=== PATIENT | male | born 1945 | race Caucasian/White ===

== ENCOUNTER 2022-12-18 19:00 | Outpatient (CLI) | payer OTHER, SELFPAY ==
[2022-12-18 22:16] LABS: Erythrocyte SedimentationRate* 23 mm/hr (2-15)
== END 2022-12-18 19:01 | disposition home or self-care (01) ==
PROVIDERS: PCP Surgery; Visit Provider Nurse Practitioner Family
DX: R60.0 Localized edema (principal)
CPT/HCPCS: 85651

== ENCOUNTER 2023-07-27 15:30 | Outpatient (RCR) | payer OTHER, SELFPAY | END 2023-08-06 08:51 | disposition home or self-care (01) | PROVIDERS: PCP Surgery; Visit Provider Podiatrist | DX: S86.012D Strain of left Achilles tendon, subsequent encounter (principal); Z51.89 Encounter for other specified aftercare; M76.62 Achilles tendinitis, left leg; M25.572 Pain in left ankle and joints of left foot | CPT/HCPCS: 97110; 97140; 97161 ==

== ENCOUNTER 2024-07-17 16:15 | Outpatient (RCR) | payer OTHER, SELFPAY | END 2024-10-27 09:23 | disposition home or self-care (01) | PROVIDERS: PCP Surgery; Visit Provider Family Medicine | DX: M54.41 Lumbago with sciatica, right side (principal); M54.16 Radiculopathy, lumbar region; M62.81 Muscle weakness (generalized); Z74.09 Other reduced mobility; Z51.89 Encounter for other specified aftercare | CPT/HCPCS: 97110; 97140; 97161 ==

== ENCOUNTER 2025-03-28 09:09 | Outpatient (CLI) | payer OTHER, SELFPAY | END 2025-03-28 09:10 | disposition home or self-care (01) | LOC: WOUND 09:12 | PROVIDERS: PCP Family Medicine; Visit Provider Nurse Practitioner Family | DX: I87.2 Venous insufficiency (chronic) (peripheral) (principal); L97.818 Non-pressure chronic ulcer of other part of right lower leg with other specified severity; I48.19 Other persistent atrial fibrillation; Z79.01 Long term (current) use of anticoagulants | CPT/HCPCS: 97597; G0463 ==

== ENCOUNTER 2025-04-04 09:18 | Outpatient (CLI) | payer OTHER, SELFPAY | END 2025-04-04 09:19 | disposition home or self-care (01) | LOC: WOUND 09:18 | PROVIDERS: PCP Family Medicine; Visit Provider Nurse Practitioner Family | DX: I87.2 Venous insufficiency (chronic) (peripheral) (principal); L97.818 Non-pressure chronic ulcer of other part of right lower leg with other specified severity; I48.19 Other persistent atrial fibrillation | CPT/HCPCS: 11042 ==

== ENCOUNTER 2025-04-11 09:26 | Outpatient (CLI) | payer OTHER, SELFPAY | END 2025-04-11 09:27 | disposition home or self-care (01) | LOC: WOUND 09:26 | PROVIDERS: PCP Family Medicine; Visit Provider Nurse Practitioner Family | DX: I87.2 Venous insufficiency (chronic) (peripheral) (principal); L97.812 Non-pressure chronic ulcer of other part of right lower leg with fat layer exposed; I48.19 Other persistent atrial fibrillation | CPT/HCPCS: 11042 ==

== ENCOUNTER 2025-04-18 09:30 | Outpatient (CLI) | payer OTHER, SELFPAY | END 2025-04-18 09:31 | disposition home or self-care (01) | LOC: WOUND 09:30 | PROVIDERS: PCP Family Medicine; Visit Provider Nurse Practitioner Family | DX: I87.2 Venous insufficiency (chronic) (peripheral) (principal); L97.812 Non-pressure chronic ulcer of other part of right lower leg with fat layer exposed; I48.91 Unspecified atrial fibrillation; Z79.01 Long term (current) use of anticoagulants | CPT/HCPCS: 11042 ==

== ENCOUNTER 2025-04-25 11:22 | Outpatient (CLI) | payer OTHER, SELFPAY | END 2025-04-25 11:23 | disposition home or self-care (01) | LOC: WOUND 11:22 | PROVIDERS: PCP Family Medicine; Visit Provider Nurse Practitioner Family | DX: I87.2 Venous insufficiency (chronic) (peripheral) (principal); L97.812 Non-pressure chronic ulcer of other part of right lower leg with fat layer exposed; I48.19 Other persistent atrial fibrillation | CPT/HCPCS: 11042 ==

== ENCOUNTER 2025-05-02 11:13 | Outpatient (CLI) | payer OTHER, SELFPAY | END 2025-05-02 11:14 | disposition home or self-care (01) | LOC: WOUND 11:13 | PROVIDERS: PCP Family Medicine; Visit Provider Family Medicine | DX: I87.2 Venous insufficiency (chronic) (peripheral) (principal); L97.812 Non-pressure chronic ulcer of other part of right lower leg with fat layer exposed; I48.19 Other persistent atrial fibrillation | CPT/HCPCS: 11042 ==

== ENCOUNTER 2025-05-09 11:26 | Outpatient (CLI) | payer OTHER, SELFPAY | END 2025-05-09 11:27 | disposition home or self-care (01) | LOC: WOUND 11:26 | PROVIDERS: PCP Family Medicine; Visit Provider Physician Assistant | DX: I87.2 Venous insufficiency (chronic) (peripheral) (principal); L97.812 Non-pressure chronic ulcer of other part of right lower leg with fat layer exposed; I48.19 Other persistent atrial fibrillation | CPT/HCPCS: 97597 ==

== ENCOUNTER 2025-05-16 11:21 | Outpatient (CLI) | payer OTHER, SELFPAY | END 2025-05-16 11:22 | disposition home or self-care (01) | LOC: WOUND 11:21 | PROVIDERS: PCP Family Medicine; Visit Provider Nurse Practitioner Family | DX: I87.2 Venous insufficiency (chronic) (peripheral) (principal); L97.818 Non-pressure chronic ulcer of other part of right lower leg with other specified severity; I48.19 Other persistent atrial fibrillation | CPT/HCPCS: G0463 ==

== ENCOUNTER 2025-08-02 05:12 | Emergency (ER) | payer OTHER, SELFPAY ==
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
--- OUTSIDE RECORDS SUMMARY | 2025-08-02 05:14 | XMS_ITS ---
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 Phone ^\\, ^\\ Unavailable Unavailable Brook Cottrell Unavailable Unavailable Jameson Stallings Unavailable Unavailable Allergies and adverse reactions Code CodeSystem Substance Reaction Severity StartDate Concern Status Venoms Unknown 11/29/2019 active Hymenoptera Unknown 11/29/2019 active GRASS POLLEN Unknown 11/29/2019 active Adhesive Tape Unknown 11/29/2019 active Care Team Name Role Address Phone Organization Dates Jameson Stallings [address], [address], [place] (Office): [facility] 11/29/2019 - 12/11/2019 ^\\ ^\\ [place] [facility] 11/29/2019 - 12/11/2019 Brook Cottrell [address] [place] [address] , [place], [address], [place] (Office): : (Pager): [facility] 11/29/2019 - 12/11/2019 Immunizations Immunization Status Vaccine Details Vaccine Code CodeSystem Date Notes Influenza completed Influenza, high-dose, split virus, quadrivalent, injectable, preservative free 197 CVX created date: 11/30/2019 administere d date: 09/22/2019 Pneumovax Dose 1 completed pneumococcal polysaccharide vaccine, 23 valent 33 CVX created date: 11/30/2019 administere d date: 08/19/2012 TB 2 Step Mantoux Skin Test completed tuberculin skin test; unspecified formulation lotNumber: [id number] expiry: 01/30/2022 Mfg: trippiece Given 0.1 ml Left Forearm intradermally Step 1 of Multi-step with next step required 98 CVX created date: 11/30/2019 consent date: 11/30/2019 administere d date: 11/30/2019 TDap completed diphtheria, teta nus toxoids and acellular pertussis vaccine 20 CVX created date: 11/30/2019 administere d date: 08/22/2012 Prevnar 13 completed pneumococcal conjugate vaccine, 13 valent 133 CVX created date: 11/30/2019 administere d date: 11/29/2014 Mental Status Section Date Assessment Total Score Description 12/11/2019 CAM 0 No delirium ind icated 12/03/2019 BIMS 15 cognitively int act CAM 0 No delirium ind icated PHQ-9 03 minimal depress ion Problems Problem # Description Date of onset Resolved Date Code CodeSystem Concern Status 1 ACUTE ON CHRONIC RIGHT HEART FAILURE 11/29/[id number] active 2 BENIGN PROSTATIC HYPERPLASIA WITH LOWER URINARY TRACT SYMPTOMS 11/29/[address] active 3 BLINDNESS, ONE EYE, UNSPECIFIED EYE 11/29/[address] active 4 EDEMA, UNSPECIFIED 11/29/[address] active 5 ENCOUNTER FOR SURGICAL AFTERCARE FOLLOWING 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 11/29/[address] active 6 HYPERLIPIDEMIA, UNSPECIFIED 11/29/[address] active 7 INSOMNIA, UNSPECIFIED 11/29/[address] active 8 BODY FITTER (CURRENT) USE OF ANTICOAGULANTS 11/29/[address] active 9 MALE ERECTILE DYSFUNCTION, UNSPECIFIED 11/29/[address] active 10 MICROSCOPIC COLITIS, UNSPECIFIED 11/29/[address] active 11 OTHER INTERVERTEBRAL DISC DISPLACEMENT, LUMBAR REGION 11/29/[address] active 12 OTHER OBSTRUCTIVE AND REFLUX UROPATHY 11/29/[address] active 13 OTHER SPECIFIED POSTPROCEDURAL STATES 11/29/[address] active 14 PERSONAL HISTORY OF TRANSIENT ISCHEMIC ATTACK (TIA), AND CEREBRAL INFARCTION WITHOUT RESIDUAL DEFICITS 11/29/[address] active 15 RASH AND OTHER NONSPECIFIC SKIN ERUPTION 11/29/[address] active 16 RETENTION OF URINE, UNSPECIFIED 11/29/[address] active 17 RHEUMATIC TRICUSPID INSUFFICIENCY 11/29/[address] active 18 UNSPECIFIED ATRIAL FIBRILLATION 11/29/[address] active 19 UNSPECIFIED ATRIAL FLUTTER 11/29/[address] active 20 UNSPECIFIED HEARING LOSS, UNSPECIFIED EAR 11/29/[address] active Reason for Referral No Reasons for Referral Entered Social History Social History Observation Description Start Date End Date Code Code System Current Smoking Status Tobacco smoking consumption unknown 880038190 SNOMED CT Sex Assigned At Male 1945 [address]-4 [facility] Gender Identity Sexual Orientation Vital Signs Code Code System Vitals Name Values and Units Timing Information 9279-1 [facility] Respiratory Rate Value=18.0 Units=/m in 12/11/2019 8462-4 [facility] Blood Pressure-Diastolic Value=65 Un its=mmHg 12/11/2019 8480-6 [facility] Blood Pressure-Systolic Vajng=696 Un its=mmHg 12/11/2019 8310-5 [facility] Body Temperature Value=98.1 Units= F 12/11/2019 8867-4 [facility] Heart rate Value=84.0 Units=/min 01/2020 70163-7 [facility] O2 % BldC Oximetry Value=98.0 Units= % 12/11/2019 31595-0 [facility] Pain Level Value=0.0 12/11/2019 88225-2 [facility] Weight Voiyl=060.4 Units=Lbs 01/2020 8302-2 [facility] Height Value=67.0 Units=Inches 11/29/2019
--- NOTE | 2025-08-02 05:16 | ED.GENADULT ---
HPI - General Adult General Time Seen by Provider: 05:16 Date Seen: 08/02/25 Chief complaint: Epistaxis/Nosebleed Stated complaint: nose bleed/on Eliquis Time Seen by Provider: 08/02/25 05:16 Source: patient and RN notes reviewed Mode of arrival: ambulatory Limitations: no limitations History of Present Illness HPI narrative: 80-year-old male currently anticoagulated for atrial fibrillation with scheduled ablation and pacemaker placement in a couple of weeks who comes in with nose bleed. Patient has had intermittent nosebleeds for the last week but today's been consistently bleeding for last couple hours. Has a nasal clamp that he put on with minimal improvement. Denies trauma. Related Data Home Medications ?Medication ?Instructions ?Recorded ?Confirmed apixaban 5 mg tablet (Eliquis) 5 mg PO 12/18/22 12/18/22 atorvastatin 40 mg tablet 40 mg PO 12/18/22 12/18/22 finasteride 1 mg tablet 1 mg PO QDAY 12/18/22 08/02/25 leflunomide 20 mg tablet 20 mg PO QDAY 12/18/22 08/02/25 methotrexate sodium 2.5 mg tablet 2.5 mg PO 12/18/22 12/18/22 digoxin 125 mcg (0.125 mg) tablet 125 mcg PO DAILY 08/02/25 08/02/25 flecainide 50 mg tablet PO 08/02/25 furosemide .ROUTE 08/02/25 Previous Rx's ?Medication ?Instructions ?Recorded hydrochlorothiazide 25 mg tablet 25 mg PO QAM #30 tabs 12/18/22 amoxicillin 875 mg-potassium 1 tab PO BID #10 tabs 08/02/25 clavulanate 125 mg tablet Allergies Allergy/AdvReac Type Severity Reaction Status Date / Time amiodarone Allergy Mild Verified 08/02/25 05:37 hydroxychloroquine Allergy Mild Swelling/Ra Verified 08/02/25 05:37 sh sotalol Allergy Mild Rash Verified 08/02/25 05:37 adhesive tape Allergy Unknown Verified 08/02/25 05:37 grass pollen Allergy Unknown Verified 08/02/25 05:37 silicone Allergy Unknown Verified 08/02/25 05:37 venom-wasp Allergy Unknown Verified 08/02/25 05:37 yellow jacket venom Allergy Mild Uncoded 12/18/22 18:34 PFSH PFSH Medical History (Updated 08/02/25 @ 06:21 by Derek Muñoz MD) Lower extremity edema ?R60.0 - Localized edema (ICD-10) Social History Smoking Status: Never smoker How often do you have a drink containing alcohol: never AUDIT-C Alcohol total score: 0 Non-prescribed substance use: denies use Exam Narrative: Exam Narrative: General: well nourished , NAD Head: Atraumatic and normocephalic ENT: External ears and external nose are normal Eyes: Conjunctiva clear, pupils are equal reactive, external ocular motions are intact Neck: Full spontaneous range of motion of the neck Lungs: No respiratory distress Musculoskeletal: No tenderness or deformity Neurologic: No gross focal neurologic deficits Skin: No rashes Psych: Mood and affect are appropriate Const: Vital Signs, click to edit/add: Vital Signs - 24 hr 08/02/25 05:27 Temperature 98.0 F Pulse Rate [Right Pulse Oximeter] 120 H Respiratory Rate 18 Blood Pressure [Ri ght Upper Arm] 140/91 H Pulse Oximetry 96 Oxygen Delivery Me thod Room Air Course Course ED Course: Reviewed prior wound care note from May 2024 which was follow-up for 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 Patient presents today with nosebleed. He has had mild nosebleeds intermittently but more consistent in the last couple of days and current nosebleed for couple hours. On exam here, patient appears comfortable. Nasal clamp is in place. This was removed and patient blew several large clots out of the right nostril. Gauze soaked with lidocaine 1% with epinephrine and Afrin was placed. Reevaluation(s) Time of Reevaluation #1: 06:18 Reevaluation #1: Patient recheck, packing removed. No active bleeding seen but fresh clot is seen on the nasal septum right next 1 of the turbinates. Silver nitrate cautery was applied. A 7.5 cm rhino rocket was placed. No further anterior bleeding, trace trickle of blood in the back of the throat additional air was placed in the rhino rocket. We discussed follow-up next week to have the packing removed. Patient will be started on Augmentin for prophylaxis, as he has an ablation coming up will have him continue his blood thinner at this point as well. Stable for discharge. Vital Signs Vital signs: Initial Vital Signs Temperature 98.0 F 08/02/25 05:27 Temperature Source Temporal Artery Scan 08/02/25 05:27 Pulse Rate 120 H 08/02/25 05:27 Respiratory Rate 18 08/02/25 05:27 Blood Pressure 140/91 H 08/02/25 05:27 Blood Pressure Mean 107 H 08/02/25 05:27 Blood Pressure Position Sitting 08/02/25 05:27 Pulse Oximetry 96 08/02/25 05:27 Oxygen Delivery Method Room Air 08/02/25 05:27 Vital Signs Temperature 98.0 F 08/02/25 05:27 Pulse Rate 120 H 08/02/25 05:27 Respiratory Rate 18 08/02/25 05:27 Blood Pressure 140/91 H 08/02/25 05:27 Pulse Oximetry 96 08/02/25 05:27 Oxygen Delivery Method Room Air 08/02/25 05:27 Temperature 98.0 F 08/02/25 05:27 Pulse Rate 120 H 08/02/25 05:27 Respiratory Rate 18 08/02/25 05:27 Blood Pressure 140/91 H 08/02/25 05:27 Pulse Oximetry 96 08/02/25 05:27 Oxygen Delivery Method Room Air 08/02/25 05:27 Medications Administered Medications: Discontinued Medications Generic Name Dose Route Start Last Admin Trade Name Freq PRN Reason Stop Dose Admin Lidocaine/Epinephrine 20 ml 08/02/25 05:20 08/02/25 05:56 Lidocaine 1%-Epi 1:100,000 INFILTRATI 08/02/25 05:21 20 ml ONCE ONE Administration Oxymetazoline HCl 1 each 08/02/25 05:20 08/02/25 05:57 Oxymetazoline (Afrin) Soak TOPICAL 08/02/25 05:21 1 each ONCE ONE Administration Medical Decision Making Lab Data Labs: Lab Results 08/02/25 Range/Units 06:00 Hgb 12.3 L (13.5-17.5) gm/dL Discharge Plan Discharge Clinical Impression: Epistaxis, Anticoagulant long-term use Patient Disposition: Home, Self-Care Condition: Stable Instructions: Nosebleed (ED) Additional Instructions: Leave nasal packing in place until you see Dr. Mcgowan. You may have a small amount of blood around the packing. If this happens, apply nasal clamp. Take antibiotics as prescribed Continue your blood thinner Activity Level: Activity as Tolerated Discharge Diet: Regular Prescriptions: New amoxicillin-pot clavulanate 875-125 mg tablet 1 tab PO BID Qty: 10 0RF No Action atorvastatin 40 mg tablet 40 mg PO Eliquis 5 mg tablet 5 mg PO methotrexate sodium 2.5 mg tablet 2.5 mg PO finasteride 1 mg tablet 1 mg PO QDAY leflunomide 20 mg tablet 20 mg PO QDAY flecainide 50 mg tablet PO digoxin 125 mcg (0.125 mg) tablet 125 mcg PO DAILY furosemide [Lasix] .ROUTE hydrochlorothiazide 25 mg tablet 25 mg PO QAM Qty: 30 1RF Follow Up/Referrals: Gerardo Ferguson MD [Primary Care Provider, Family Practice] Stand Alone Forms: [employer] Info Instructions
[2025-08-02 05:27] VITALS: BP 140/91; PULSE 120; RESP 18; TEMP 36.7; O2SAT 96; BMI 19.0
--- OUTSIDE RECORDS SUMMARY | 2025-08-02 05:50 | XMS_ITS ---
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 Phone ^\\, ^\\ Unavailable Unavailable Brook Cottrell Unavailable Unavailable Jameson Stallings Unavailable Unavailable Allergies and adverse reactions Code CodeSystem Substance Reaction Severity StartDate Concern Status Venoms Unknown 11/29/2019 active Hymenoptera Unknown 11/29/2019 active GRASS POLLEN Unknown 11/29/2019 active Adhesive Tape Unknown 11/29/2019 active Care Team Name Role Address Phone Organization Dates Jameson Stallings [address], [place], [address], [place] (Office): [facility] 11/29/2019 - 12/11/2019 ^\\ ^\\ [place] [facility] 11/29/2019 - 12/11/2019 Brook Cottrell [address] [place] [address] , [place], [address], [place] (Office): : (Pager): [facility] [...] completed tuberculin skin test; unspecified formulation lotNumber: [id number] expiry: 01/30/2022 Mfg: [employer] Given 0.1 ml Left Forearm intradermally Step [...] ACUTE ON CHRONIC RIGHT HEART FAILURE 11/29/[id number] active 2 BENIGN PROSTATIC HYPERPLASIA WITH LOWER URINARY TRACT SYMPTOMS 11/29/[address] active 3 BLINDNESS, ONE EYE, UNSPECIFIED EYE 11/29/[address] active 4 EDEMA, UNSPECIFIED 11/29/[address] active 5 ENCOUNTER FOR SURGICAL AFTERCARE FOLLOWING 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 11/29/[address] active 6 HYPERLIPIDEMIA, UNSPECIFIED 11/29/[address] active 7 INSOMNIA, UNSPECIFIED 11/29/[address] active 8 [place] (CURRENT) USE OF ANTICOAGULANTS 11/29/[address] active 9 MALE ERECTILE DYSFUNCTION, UNSPECIFIED 11/29/[address] active 10 MICROSCOPIC COLITIS, UNSPECIFIED 11/29/[address] active 11 OTHER INTERVERTEBRAL DISC DISPLACEMENT, LUMBAR REGION 11/29/[address] active 12 OTHER OBSTRUCTIVE AND REFLUX UROPATHY 11/29/[address] active 13 OTHER SPECIFIED POSTPROCEDURAL STATES 11/29/[address] active 14 PERSONAL HISTORY OF TRANSIENT ISCHEMIC ATTACK (TIA), AND CEREBRAL INFARCTION WITHOUT RESIDUAL DEFICITS 11/29/[address] active 15 RASH AND OTHER NONSPECIFIC SKIN ERUPTION 11/29/[address] active 16 RETENTION OF URINE, UNSPECIFIED 11/29/[address] active 17 RHEUMATIC TRICUSPID INSUFFICIENCY 11/29/[address] active 18 UNSPECIFIED ATRIAL FIBRILLATION 11/29/[address] active 19 UNSPECIFIED ATRIAL FLUTTER 11/29/[address] active 20 UNSPECIFIED HEARING LOSS, UNSPECIFIED EAR 11/29/[address] active Reason for Referral No Reasons for Referral Entered Social History Social History Observation Description Start Date End Date Code Code System Current Smoking Status Tobacco smoking consumption unknown 049259549 SNOMED CT Sex Assigned At Male 1945 [address]-4 [facility] Gender Identity Sexual Orientation Vital Signs Code Code System Vitals Name Values and Units Timing Information 9279-1 [facility] Respiratory Rate Value=18.0 Units=/m in 12/11/2019 8462-4 [facility] Blood Pressure-Diastolic Value=65 Un its=mmHg 12/11/2019 8480-6 [facility] Blood Pressure-Systolic Wdsbp=666 Un its=mmHg 12/11/2019 8310-5 [facility] Body Temperature Value=98.1 Units= F 12/11/2019 8867-4 [facility] Heart rate Value=84.0 Units=/min 01/2020 36331-1 [facility] O2 % BldC Oximetry Value=98.0 Units= % 12/11/2019 42531-5 [facility] Pain Level Value=0.0 12/11/2019 67327-4 [facility] Weight Yckrd=417.4 Units=Lbs 01/2020 8302-2 [facility] Height Value=67.0 Units=Inches 11/29/2019
--- OUTSIDE RECORDS SUMMARY | 2025-08-02 05:50 | XMS_ITS | Data Portability ---
Author Organization [place] [facility], [facility] Address [address] [place] [address] Care Team Providers Care Label Remover Name Role Phone GATO JUDGE Primary Care Provider [phone] Assessment Encounter Date Assessment Date Assessment LastModified by Organization Details LastModified Time 04/28/2021 04/28/2021 75 year old male with history of BPH with outlet obstruction and urinary retention now s/p Greenlight PVP and erectile dysfunction. Acutely developed gross hematuria and lower abdominal discomfort. [email or web address] Not available 04/28/2021 08:34:31 10/15/2022 10/15/2022 77 year old male with history of BPH with outlet obstruction and urinary retention now s/p Greenlight PVP and erectile dysfunction. Acutely developed gross hematuria and lower abdominal discomfort. [email or web address] Not available 10/14/2022 16:37:12 04/15/2023 04/15/2023 77 year old male with history of BPH with outlet obstruction and urinary retention now s/p Greenlight PVP and erectile dysfunction. Acutely developed gross hematuria and lower abdominal discomfort. [email or web address] Not available 04/12/2023 15:13:09 10/14/2023 10/14/2023 78 year old male with history of BPH with outlet obstruction and urinary retention now s/p Greenlight PVP and erectile dysfunction. Acutely developed gross hematuria and lower abdominal discomfort. [email or web address] Not available 10/14/2023 08:43:11 07/05/2024 07/05/2024 79 year old male with history of BPH with outlet obstruction and urinary retention now s/p Greenlight PVP and erectile dysfunction. Acutely developed gross hematuria and lower abdominal discomfort. [email or web address] Not available 06/30/2024 14:53:21 Plan of Treatment Reminders Order Date Submit Date Provider Last Modified By Organization Details Last Modified Time Details Appointments None recorded . Lab testoste dionne, total, serum - Needed October 20232022 023 [facility], [address] [place], [address], 3 14:10:50 shbg (sex hormone- binding globulin ), serum - Needed October 20232022 023 [facility], [address] [place], [address], 3 13:46:44 lh (luteini zing hormone) , serum - Needed October 20232022 023 [email or web address] [facility], [address] [place], [address], 3 08:39:28 urinalys is, dipstick 2020 021 Not available 1 11:44:52 Referral None recorded . Procedures None recorded . Surgeries None recorded . Imaging CT, abdomen + pelvis, w/wo contrast 2020 021 [email or web address] Not available 1 12:49:02 Medication Orders cabergol ine 0.5 mg tablet 2023 024 [email or web address], [address] [place] [address], [address], 4 15:04:06 cabergol ine 0.5 mg tablet 2022 023 [facility], [address] [place] [address], [address], 3 17:32:50 Patient TargetsNo targets recorded. Patient InstructionsNo instructions recorded. Reason for Referral None Reported. Results Created Date Observation Date Name Description Value Unit Range Abnormal Flag Note LastModifiedBy Organization Detail LastModifiedTime 04/28/20 21 04/28/2021 urina lysis , dipst ick Color-Status Yellow Not Available [facility] [address], [place], [address], 04/28/2021 11:43:44 04/28/20 21 04/28/2021 urina lysis , dipst ick Clarity-Stat us Clear Not Available [facility] [address], [place], [address], 04/28/2021 11:43:44 04/28/20 21 04/28/2021 urina lysis , dipst ick Glucose-Stat us Negati ve Not Available [facility] [address], [place], [address], 04/28/2021 11:43:44 04/28/20 21 04/28/2021 urina lysis , dipst ick Bilirubin-St atus Negati ve Not Available [facility] [address], [place], [address], 04/28/2021 11:43:44 04/28/20 21 04/28/2021 urina lysis , dipst ick Ketones-Stat us Negati ve Not Available [facility] [address], [place], [address], 04/28/2021 11:43:44 04/28/20 21 04/28/2021 urina lysis , dipst ick Sp Lorado-Stat us 1.010 Not Available [facility] [address], [place], [address], 04/28/2021 11:43:44 04/28/20 21 04/28/2021 urina lysis , dipst ick pH-Status 5.5 Not Available [facility] [address], [place], [address], 04/28/2021 11:43:44 04/28/20 21 04/28/2021 urina lysis , dipst ick Urobilinogen -Status 0.2 Not Available [facility] [address], [place], [address], 04/28/2021 11:43:44 04/28/20 21 04/28/2021 urina lysis , dipst ick Nitrates-Sta tus negati ve Not Available [facility] [address], [place], [address], 04/28/2021 11:43:44 04/28/20 21 04/28/2021 urina lysis , dipst ick Blood-Status Large Not Available [facility] [address], [place], [address], 04/28/2021 11:43:44 04/28/20 21 04/28/2021 urina lysis , dipst ick Leuko-Status Large Not Available [facility] [address], [place], [address], 04/28/2021 11:43:44 04/28/20 21 04/28/2021 urina lysis , dipst ick Specimen Type Voided Not Available [facility] [address], [place], [address], 04/28/2021 11:43:44 05/01/2004/28/2021 bladd er scan (PROC ) No observ ation record ed. [email or web address] Not Available 2021 12:27:51 05/01/2004/30/2021 CT, abdom en + pelvi s, w/wo contr ast No observ ation record ed. [email or web address] [facility] [address], [place], [address], 10/15/2022 12:27:51 05/02/2028 0404/30/2021 CT, abdom en + pelvi s, w/wo contr ast No observ ation record ed. [email or web address] Not Available 2021 12:27:51 10/22/20 22 10/15/2022 bladd er scan (PROC ) No observ ation record ed. [email or web address] Not Available 2022 17:52:53 04/26/20 23 04/15/2023 bladd er scan (PROC ) No observ ation record ed. [email or web address] Not Available 2022 17:31:35 Result Notes None recorded. Procedures Surgical History Date Name Laterality Status Provider Name and Address Organization Details Recorded Time 025 Bladder Scan cancelled Rosita Cruz [facility] 04/16/2025 09:04:25 024 COMPLEX VISIT completed Mir Michel MD [address] [place] [address],[address], [place], [address], [facility] 07/05/2024 17:45:59 024 Bladder Scan completed Rosita Cruz [facility] 07/05/2024 14:51:18 023 Bladder Scan completed Rosita Pavon [facility] 10/14/2023 14:25:04 023 Bladder Scan completed Faye Nicolasa [facility] 04/15/2023 14:35:56 022 Bladder Scan completed Chintan Oden [facility] 10/15/2022 11:52:20 021 Bladder Scan completed Jaleesa Yost [facility] 04/28/2021 11:49:09 procedure on heart completed Anastacio Yost [facility] 04/28/2021 11:54:07 Cholecystectomy completed Jaleesa Yost [facility] 04/28/2021 11:59:49 Hernia Repair completed Jaleesa Yost [facility] 04/28/2021 11:59:55 Imaging Results None recorded. Procedure Notes None recorded. Medical Equipment None Reported. Allergies Allergen ID Allergen Name Allergen Category Reaction Reaction Severity Criticality Documentation Date Start Date Code Code System Note Provider Name and Address Organization Details Recorded Time 974203 hydroxych loroquine medicatio n rash Not available Not available 04/28/2021 5521 RxNorm Jaleesa almazan, [facility] 11:53:05 595128 grass pollen environme nt,medica tion Not available Not available Not available 04/28/2021 Jaleesa almazan, [facility] 11:53:12 811933 wasp venoms environme nt Not available Not available Not available 04/28/2021 33455 RxNorm Jaleesa almazan, [facility] 11:53:18 719488 amiodaron e medicatio n rash Not available Not available 04/28/2021 703 RxNorm Jaleesa almazan, [facility] 11:53:42 Medications Name Sig Start Date Stop Date Status Note LastModified by Organization Details LastModified Time atorvastatin 40 mg tablet active Not Available Not Available Not Available fluorouracil 5 % topical cream 10/15 completed Not Available Not Available Not Available prednisone 5 mg tablet 04/28 completed Not Available Not Available Not Available leflunomide 20 mg tablet active Not Available Not Available Not Available famotidine 20 mg tablet active Not Available Not Available No t Available methotrexate sodium 2.5 mg tablet active Not Available Not Available Not Available cabergoline 0.5 mg tablet Take 1 tablet twice a week by oral route. active Not Available Not Available No t Available sodium fluoride 0.2 % dental solution active Not Available Not Available Not Available hydrochloroth iazide 25 mg tablet 10/14 completed Not Available Not Available Not Available furosemide 20 mg tablet 10/14 completed Not Available Not Available Not Available hydroxychloro quine 200 mg tablet 04/28 completed Not Available Not Available Not Available epinephrine 0.3 mg/0.3 mL injection, auto-injector 10/15 completed Not Available Not Available Not Available finasteride 5 mg tablet TAKE ONE TABLET BY MOUTH ONCE EVERY DAY 2023 active Not Available Not Available Not Avai lable gentamicin 0.1 % topical ointment active Not Available Not Available Not Available loratadine 10/15 completed Not Available Not Available Not Available folic acid active Not Available Not Av ailable Not Available Benadryl 10/15 completed Not Available Not Available Not Available diclofenac 1 % topical gel 10/15 completed Not Available Not Available Not Available Eliquis 5 mg tablet BID active Not Available Not Available Not Available Vitals Date Recorded Body height Body mass index (BMI) Body weight Provider Name and Address Organization Details Last Updated DateTime 04/15/2023 172.72 cm 19.8 kg/m2 58772.01 g Faye Baldwin [facility] 04/15/2023 14:32:08 Date Recorded Body height Body mass index (BMI) Body weight Provider Name and Address Organization Details Last Updated DateTime 04/28/2021 172.72 cm 21 kg/m2 67228.75 g Jaleesa Yost [facility] 04/28/2021 11:50:58 Date Recorded Body height Body mass index (BMI) Body weight Provider Name and Address Organization Details Last Updated DateTime 07/05/2024 172.72 cm 19.8 kg/m2 91297.01 g Rosita Cruz [facility] 07/05/2024 14:50:36 Date Recorded Body height Body mass index (BMI) Body weight Provider Name and Address Organization Details Last Updated DateTime 10/14/2023 172.72 cm 19.8 kg/m2 08804.01 g Rosita Pavon [facility] 10/14/2023 14:25:33 Date Recorded Body height Body mass index (BMI) Body weight Provider Name and Address Organization Details Last Updated DateTime 10/15/2022 172.72 cm 19.8 kg/m2 06817.01 g Chintan Oden [facility] 10/15/2022 11:48:18 Social History Question Answer Notes LastModified by Organizat ion Details LastModified Time Tobacco Smoking Status Never Smoker Jaleesa Yost [facility] 04/28/2021 11:58:26 What Is Your Level Of Caffeine Consumption? Occasional Information not available 04/28/2021 How Much Tobacco Do You Chew? None Information not available 04/28/2021 Recreational Drug Use No Information not available 04/28/2021 Could You Be ? No Information not available 04/28/2021 Marital Status Informatio n not available 04/28/2021 What Was The Date Of Your Most Recent Tobacco Screening? 07/05/2024 [email or web address] Information not available 07/05/2024 What Is Your Relationship Status? Information not available 10/15/2022 Has Tobacco Cessation Counseling Been Provided? No Information not available 10/15/2022 Sex: Unknown Functional Status Question Answer Note LastModified by Organizat ion Details LastModified Time Do you use any illicit or recreational drugs? No [email or web address] Information not available 04/15/2023 What is your level of alcohol consumption? None Information not available 04/28/2021 Do you or have you ever used smokeless tobacco? Never used smokeless tobacco Information not available 04/28/2021 Are you currently employed? 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 Never used electronic cigarettes Information not available 04/28/2021 Mental Status None recorded. Family History Relationship Description Onset Age of this Age Resolved Age Notes LastModified by Organization Details LastModified Time Maternal Grandfather Family history of cardiac disorder Not available 04/28 11:57:27 Mother Family history of stroke Not available 04/28 11:58:15 Medical History Condition Response Diabetes N Sexually Transmitted Infection N Bleeding Disorder N Other Y High Blood Pressure N Kidney Stones N Cancer N Lung Disease N Depression N High Cholesterol N GERD/Acid Reflux N Heart Disease Y Immunizations Vaccine Type Date Status Note Provider Nam e and Address Organization Details Recorded Time Influenza, adjuvanted, quadrivalent, PF 3 completed Rosita almazan, [facility] 10/14/2023 14:23:32 COVID-19, mRNA, LNP-S, PF, 30 mcg/0.3 mL dose 3 completed Rosita almazan, [facility] 10/14/2023 14:23:32 RSV, recombinant, protein subunit RSVpreF, adjuvant reconstituted, 0.5 mL, PF 3 completed Rosita Pavon null, [facility] 10/14/2023 14:23:32 COVID-19, mRNA, LNP-S, PF, 30 mcg/0.3 mL dose 1 completed Faye March null, [facility] 04/15/2023 14:32:29 COVID-19, mRNA, LNP-S, PF, 30 mcg/0.3 mL dose 1 completed Fayemarch null, [facility] 04/15/2023 14:32:29 COVID-19, mRNA, LNP-S, PF, 30 mcg/0.3 mL dose 1 completed Fayemarch null, [facility] 04/15/2023 14:32:29 pneumococcal polysaccharide PPV23 0 completed Fayemarch null, [facility] 04/15/2023 14:32:29 pneumococcal polysaccharide PPV23 2 completed March null, [facility] 04/15/2023 14:32:29 Influenza, adjuvanted, trivalent, PF 9 completed Bernie Banksjere null, [facility] 09/09/2023 14:43:01 zoster recombinant 9 completed Benrie Enriquetare null, [facility] 09/09/2023 14:43:01 zoster recombinant 9 completed Bernie Robisonre null, [facility] 09/09/2023 14:43:01 Influenza, high-dose, quadrivalent, PF 2 completed Bernie Almejere null, [facility] 09/09/2023 14:43:01 Influenza, adjuvanted, quadrivalent, PF 1 completed Bernie Robisonre null, [facility] 09/09/2023 14:43:01 COVID-19, mRNA, LNP-S, bivalent, PF, 30 mcg/0.3 mL dose 3 completed Bernie Magañaejere null, [facility] 09/09/2023 14:43:01 Tdap 2 completed [facility] null, [facility] 09/09/2023 14:43:01 Tdap 2 completed Bernie Almejere null, [facility] 09/09/2023 14:43:01 Tdap 2 completed Bernie Almejere null, [facility] 09/09/2023 14:43:01 Pneumococcal conjugate PCV 13 5 completed Bernie Almejere null, [facility] 09/09/2023 14:43:01 zoster live 2 completed Bernie Almejere null, [facility] 09/09/2023 14:43:01 zoster live 2 completed Bernie Almejere null, [facility] 09/09/2023 14:43:01 Influenza, high-dose, trivalent, PF 0 completed Bernie Almejere null, [facility] 09/09/2023 14:43:01 Influenza, high-dose, trivalent, PF 7 completed Bernie Almejere null, [facility] 09/09/2023 14:43:01 Influenza, high-dose, trivalent, PF 8 completed Bernie Almejere null, [facility] 09/09/2023 14:43:01 Influenza, high-dose, trivalent, PF 5 completed Bernie Almejere null, [facility] 09/09/2023 14:43:01 Influenza, high-dose, trivalent, PF 6 completed Bernie Almejere null, [facility] 09/09/2023 14:43:01 Influenza, split virus, trivalent, preservative 2 completed Bernie Almejere null, [facility] 09/09/2023 14:43:01 Influenza, split virus, trivalent, preservative 3 completed Bernie Almejere null, [facility] 09/09/2023 14:43:01 Influenza, split virus, trivalent, preservative 2 completed Bernie Almejere norah, V[place] [facility] 09/09/2023 14:43:01 Influenza, split virus, trivalent, PF 0 completed Bernie Robisonjonny norah, [place] 09/09/2023 14:43:01 Influenza, split virus, trivalent, PF 6 completed Bernie Robisonjonny norah, [place] 09/09/2023 14:43:01 Td (adult), 2 Lf tetanus toxoid, preservative free, adsorbed 5 completed Bernie Robisonjonny norah, [place] 09/09/2023 14:43:02 Past Encounters Encounter ID Performer Location Encounter Start Date Encounter Closed Date Diagnosis/Indication Diagnosis SNOMED-CT Code Diagnosis ICD10 Code Diagnosis IMO Codes Diagnosis Note [id number] MD JHONATAN [facility] [address] [place] [address] 04/28/2021 11:29:57 04/30/2021 09:40:17 Lower urinary tract symptoms due to benign prostatic hypertrophy 9708304481 9101 N40.1 - S/P Greenlight PVP- PVR today 98mL- From a voiding prespectiv e he states that he is doing well. Tutu hematuria 66736289 5 R31.0 - As his bladder was evaluated at time of his greenlight PVP, the likelihood of any identifiab le pathology today is small. We discussed the benefit/ri sk assessment of proceeding with cystoscopy today.- Will obtain CT Urogram to evaluate for upper tract pathology, possible stone given left flank pain. Primary er ectile dysfunction 805570775 N52.9 - Sildenafil has provided benefit but not suitable for penetratio n. We discussed role of ICI and he is interested in trying it. We did discuss risk of priapism, so will start at low dose. [id number] MD JHONATAN [facility] [address] [place] [address] 10/15/2022 11:29:49 10/21/2022 08:47:03 Lower urinary tract symptoms due to benign prostatic hypertrophy [id number] 9101 N40.1 - S/P Greenlight PVP- PVR today 57 mL- From a voiding perspectiv e he states that he is doing well. Tutu hematuria 95562874 5 R31.0 - CT Urogram without pathology- Mostly likely from his history of prostate procedure and continued use of anticoagul ation Primary er ectile dysfunction 898801293 N52.9 - doing well with ICI [id number] Mir Michel MD [facility] [place] [id number] 04/15/2023 14:25:26 04/20/2023 13:48:32 Lower urinary tract symptoms due to benign prostatic hypertrophy 6887243528 9101 N40.1 - S/P Greenlight PVP- PVR today 0 mL- AUASS: 8- From a voiding perspectiv e he states that he is doing well. Tutu hematuria 75473397 5 R31.0 - CT Urogram without pathology- Mostly likely from his history of prostate procedure and continued use of anticoagul ation Primary er ectile dysfunction 637798115 N52.9 - doing well with ICI Reduced libido 1426565 R 68.82 - Will check hormone panel [id number] Mir Michel MD [facility] [place] [address] 10/14/2023 14:15:38 10/22/2023 11:35:22 Lower urinary tract symptoms due to benign prostatic hypertrophy 5634563913 9101 N40.1 - S/P Greenlight PVP- PVR 44 mL- AUASS: 8 --> 8 (2)- From a voiding perspectiv e he states that he is doing well. Tutu hematuria 33700011 5 R31.0 - CT Urogram without pathology- Mostly likely from his history of prostate procedure and continued use of anticoagul ation Primary er ectile dysfunction 694890801 N52.9 - doing well with ICI Reduced libido 5661199 R 68.82 - Hormone panel normal-Christopher l trial cabergolin e [id number] Mir Michel MD [facility] [place] [address] 07/05/2024 14:40:50 07/12/2024 09:26:45 Lower urinary tract symptoms due to benign prostatic hypertrophy 9481224683 9101 N40.1 - S/P Greenlight PVP- PVR 44 mL --> 67 mL- AUASS: 8 --> 8 (2) --> 5 (2)- From a voiding perspectiv e he states that he is doing well. Tutu hematuria 09745977 5 R31.0 - CT Urogram without pathology- Mostly likely from his history of prostate procedure and continued use of anticoagul ation Primary er ectile dysfunction 259120062 N52.9 - doing well with ICI Reduced libido 3611414 R 68.82 - Hormone panel normal-Christopher l trial cabergolin e Health Concerns Section Related Observation LastModified by Organization Detai ls LastModified Time None Recorded Concern Status LastModified by Organization Details LastModified Time None Recorded Advance Directives Directive None Recorded Payers Insurance Date Sequence Insurance Name Policy Number Policy Stanton Covered Member ID Stanton Member ID Guarantor Name 04/11/2025 1 [employer] Dejan Salmeronood [id number] Dejan Rao Hernández 04/15/2023 3 [place] [employer] Dejan H Hernández [id number] Dejan H Hernández 04/15/2023 2 [employer] - PLAN C (MEDICARE SUPPLEMENT) Dejan H Hernández [id number] Dejan H Hernández 04/11/2025 1 [employer] (MEDICARE REPLACEMENT/ADVA NTAGE - PPO) [id number] Dejan Rao Hernández [id number] Dejan H Hernández 04/15/2023 3 [place] [employer] Dejan H Hernández [id number] Dejan H Hernández 04/15/2023 1 [place] [employer] Dejan H Hernández [id number] Dejan H Hernández 04/30/2023 2 [employer] - OPEN ACCESS CHOICE (HMO) [id number] Dejan H Hernández [id number] Dejan H Hernández Notes Date Note Type Note Provider Name and Address Organization Details Recorded Time 04/28/2021 text/html Mr. Hernández is a 75 year old male who follows with me in my [facility] for history of urinary retention (now s/p Greenlight PVP) and erectile dysfunction. Patient has been doing quite well from a urinary stand point following his Greenlight but presents today after developing gross hematuria and discomfort. The episodes seem to correlate either with ejaculation or strenuous activity. Most recent episode was last night. Also reports some vague left sided flank pain. From an erection stand point he had previously had success with cialis but at last visit we discussed other options and started a trial of sildenafil to assess efficacy of on-demand dosing. Mir Michel MD [address] [place] [address],[address], [place], [address], [facility] 04/28/2021 14:38:00 10/15/2022 text/html Mr. Hernández is a 77 year old male who follows with me in my [facility] for history of urinary retention (now s/p Greenlight PVP) and erectile dysfunction. Patient has been doing quite well from a urinary stand point following his Greenlight but presents today after developing gross hematuria and discomfort. The episodes seem to correlate either with ejaculation or strenuous activity. Most recent episode was last night. Also reports some vague left sided flank pain. From an erection stand point he had previously had success with cialis but at last visit we discussed other options and started a trial of sildenafil to assess efficacy of on-demand dosing. 10/15/2022:Here for follow up BPH with LUTS s/p GL PVP, erectile dysfunction treated with sildenafil, and recurrent gross hematuria. At last visit we obtained a CT A/P Urogram which did not identify any upper tract pathology. He has abstained from any activity with pelvic pressure and had continued the finasteride. Currently urine is clear. Mir Michel MD [address] [place] [address],[address], [place], [address], [facility] 10/15/2022 12:29:23 04/15/2023 text/html Mr. Hernández is a 77 year old male who follows with me in my [facility] for history of urinary retention (now s/p Greenlight PVP) and erectile dysfunction. Patient has been doing quite well from a urinary stand point following his Greenlight but presents today after developing gross hematuria and discomfort. The episodes seem to correlate either with ejaculation or strenuous activity. Most recent episode was last night. Also reports some vague left sided flank pain. From an erection stand point he had previously had success with cialis but at last visit we discussed other options and started a trial of sildenafil to assess efficacy of on-demand dosing. 10/15/2022:Here for follow up BPH with LUTS s/p GL PVP, erectile dysfunction treated with sildenafil, and recurrent gross hematuria. At last visit we obtained a CT A/P Urogram which did not identify any upper tract pathology. He has abstained from any activity with pelvic pressure and had continued the finasteride. Currently urine is clear. 04/15/2023:Here for follow up BPH with LUTS s/p GL PVP, erectile dysfunction treated with sildenafil, and recurrent gross hematuria. His hematuria seems to be linked to strenuous activity but overall well managed. At last visit we started intracavernosal injection therapy which he reports has not provided significant benefit but no overly bothersome to him and his partner. Does feel as though his libido has dropped off a andrea. Mir Michel MD [address], [place], [address], [facility] 04/15/2023 17:54:58 10/14/2023 text/html Mr. Hernández is a 78 year old male who follows with me in my [facility] for history of urinary retention (now s/p Greenlight PVP) and erectile dysfunction. Patient has been doing quite well from a urinary stand point following his Greenlight but presents today after developing gross hematuria and discomfort. The episodes seem to correlate either with ejaculation or strenuous activity. Most recent episode was last night. Also reports some vague left sided flank pain. From an erection stand point he had previously had success with cialis but at last visit we discussed other options and started a trial of sildenafil to assess efficacy of on-demand dosing. 10/15/2022:Here for follow up BPH with LUTS s/p GL PVP, erectile dysfunction treated with sildenafil, and recurrent gross hematuria. At last visit we obtained a CT A/P Urogram which did not identify any upper tract pathology. He has abstained from any activity with pelvic pressure and had continued the finasteride. Currently urine is clear. 04/15/2023:Here for follow up BPH with LUTS s/p GL PVP, erectile dysfunction treated with sildenafil, and recurrent gross hematuria. His hematuria seems to be linked to strenuous activity but overall well managed. At last visit we started intracavernosal injection therapy which he reports has not provided significant benefit but no overly bothersome to him and his partner. Does feel as though his libido has dropped off a andrea. 10/14/2023:Here for follow up BPH with LUTS s/p GL PVP, erectile dysfunction treated with sildenafil, and recurrent gross hematuria. Overall doing well. Mir Michel MD [address], [place], [address], [facility] 10/14/2023 17:32:59 07/05/2024 text/html Mr. Hernández is a 79 year old male who follows with me in my [facility] for history of urinary retention (now s/p Greenlight PVP) and erectile dysfunction. Patient has been doing quite well from a urinary stand point following his Greenlight but presents today after developing gross hematuria and discomfort. The episodes seem to correlate either with ejaculation or strenuous activity. Most recent episode was last night. Also reports some vague left sided flank pain. From an erection stand point he had previously had success with cialis but at last visit we discussed other options and started a trial of sildenafil to assess efficacy of on-demand dosing. 10/15/2022:Here for follow up BPH with LUTS s/p GL PVP, erectile dysfunction treated with sildenafil, and recurrent gross hematuria. At last visit we obtained a CT A/P Urogram which did not identify any upper tract pathology. He has abstained from any activity with pelvic pressure and had continued the finasteride. Currently urine is clear. 04/15/2023:Here for follow up BPH with LUTS s/p GL PVP, erectile dysfunction treated with sildenafil, and recurrent gross hematuria. His hematuria seems to be linked to strenuous activity but overall well managed. At last visit we started intracavernosal injection therapy which he reports has not provided significant benefit but no overly bothersome to him and his partner. Does feel as though his libido has dropped off a andrea. 10/14/2023:Here for follow up BPH with LUTS s/p GL PVP, erectile dysfunction treated with sildenafil, and recurrent gross hematuria. Overall doing well. 07/05/2024:Here for follow up BPH with LUTS s/p GL PVP, erectile dysfunction treated with sildenafil, and recurrent gross hematuria. Only took one month of cabergoline but would like to give it another go. Mir Michel MD [address], [place], [address], [facility] 07/05/2024 17:46:56
[2025-08-02] MEDS: LIDOCAINE 1%-EPI 1:100,000 20 ML INFILTRATI (05:56)
[2025-08-02] MEDS: OXYMETAZOLINE (AFRIN) SOAK 1 EACH TOPICAL (05:57)
[2025-08-02 06:07] LABS: Hemoglobin* 12.3 gm/dL (13.5-17.5)
[2025-08-02] MEDS: SILVER NITRATE APPLICATOR 1 EACH STICK..EA. TOPICAL (06:23)
== END 2025-08-02 06:46 | disposition home or self-care (01) ==
PROVIDERS: Emergency Provider Family Medicine; PCP Family Medicine
DX: R04.0 Epistaxis (principal)
CPT/HCPCS: 30901; 36415; 85018; 85610; 99283; 99284; A9270

== ENCOUNTER 2025-08-02 07:32 | Observation (INO) | payer OTHER, SELFPAY ==
[2025-08-02] VITALS (26 sets, daily range): BP systolic 128–154; BP diastolic 70–87; PULSE 109–122; RESP 16–22; TEMP 36.3–36.9; O2SAT 93–97; BMI 19.0; BMI 19.8
--- OUTSIDE RECORDS SUMMARY | 2025-08-02 07:35 | XMS_ITS ---
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 Name Role Phone ^\\, ^\\ Unavailable Unavailable Brook Cottrell Unavailable Unavailable Jameson Stallings Unavailable Unavailable Allergies and adverse reactions Code CodeSystem Substance Reaction Severity StartDate Concern Status Venoms Unknown 11/29/2019 active Hymenoptera Unknown 11/29/2019 active GRASS POLLEN Unknown 11/29/2019 active Adhesive Tape Unknown 11/29/2019 active Care Team Name Role Address Phone Organization Dates Jameson Stallings [address], [place], [address], [place] (Office): [facility] 11/29/2019 - 12/11/2019 ^\\ ^\\ [place] [facility] 11/29/2019 - 12/11/2019 Brook Cottrell [address] [place] [address] , [place], [address], [place] (Office): : (Pager): [facility] 11/29/2019 - 12/11/2019 Immunizations Immunization Status Vaccine Details Vaccine Code CodeSystem Date Notes Influenza completed Influenza, high-dose, split virus, quadrivalent, injectable, preservative free 197 CVX created date: 11/30/2019 administere d date: 09/22/2019 Pneumovax Dose 1 completed pneumococcal polysaccharide vaccine, 23 valent 33 CVX created date: 11/30/2019 administere d date: 08/19/2012 TB 2 Step Mantoux Skin Test completed tuberculin skin test; unspecified formulation lotNumber: [id number] expiry: 01/30/2022 Mfg: [employer] Given 0.1 ml Left Forearm intradermally Step [...] ACUTE ON CHRONIC RIGHT HEART FAILURE 11/29/[id number] active 2 BENIGN PROSTATIC HYPERPLASIA WITH LOWER URINARY TRACT SYMPTOMS 11/29/[address] active 3 BLINDNESS, ONE EYE, UNSPECIFIED EYE 11/29/[address] active 4 EDEMA, UNSPECIFIED 11/29/[address] active 5 ENCOUNTER FOR SURGICAL AFTERCARE FOLLOWING 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 11/29/[address] active 6 HYPERLIPIDEMIA, UNSPECIFIED 11/29/[address] active 7 INSOMNIA, UNSPECIFIED 11/29/[address] active 8 HELP DESK INTERNSHIP (CURRENT) USE OF ANTICOAGULANTS 11/29/[address] active 9 MALE ERECTILE DYSFUNCTION, UNSPECIFIED 11/29/[address] active 10 MICROSCOPIC COLITIS, UNSPECIFIED 11/29/[address] active 11 OTHER INTERVERTEBRAL DISC DISPLACEMENT, LUMBAR REGION 11/29/[address] active 12 OTHER OBSTRUCTIVE AND REFLUX UROPATHY 11/29/[address] active 13 OTHER SPECIFIED POSTPROCEDURAL STATES 11/29/[address] active 14 PERSONAL HISTORY OF TRANSIENT ISCHEMIC ATTACK (TIA), AND CEREBRAL INFARCTION WITHOUT RESIDUAL DEFICITS 11/29/[address] active 15 RASH AND OTHER NONSPECIFIC SKIN ERUPTION 11/29/[address] active 16 RETENTION OF URINE, UNSPECIFIED 11/29/[address] active 17 RHEUMATIC TRICUSPID INSUFFICIENCY 11/29/[address] active 18 UNSPECIFIED ATRIAL FIBRILLATION 11/29/[address] active 19 UNSPECIFIED ATRIAL FLUTTER 11/29/[address] active 20 UNSPECIFIED HEARING LOSS, UNSPECIFIED EAR 11/29/[address] active Reason for Referral No Reasons for Referral Entered Social History Social History Observation Description Start Date End Date Code Code System Current Smoking Status Tobacco smoking consumption unknown 297404539 SNOMED CT Sex Assigned At Male 1945 15256-6 [facility] Gender Identity Sexual Orientation Vital Signs Code Code System Vitals Name Values and Units Timing Information 9279-1 [facility] Respiratory Rate Value=18.0 Units=/m in 12/11/2019 8462-4 [facility] Blood Pressure-Diastolic Value=65 Un its=mmHg 12/11/2019 8480-6 [facility] Blood Pressure-Systolic Uzlem=048 Un its=mmHg 12/11/2019 8310-5 [facility] Body Temperature Value=98.1 Units= F 12/11/2019 8867-4 [facility] Heart rate Value=84.0 Units=/min 01/2020 24111-3 [facility] O2 % BldC Oximetry Value=98.0 Units= % 12/11/2019 06582-4 [facility] Pain Level Value=0.0 12/11/2019 82808-1 [facility] Weight Mtjuk=415.4 Units=Lbs 01/2020 8302-2 [facility] Height Value=67.0 Units=Inches 11/29/2019
--- NOTE | 2025-08-02 07:37 | ED.GENADULT ---
HPI - General Adult General Time Seen by Provider: 07:37 Date Seen: 08/02/25 Chief complaint: Epistaxis/Nosebleed Stated complaint: Nose bleed Time Seen by Provider: 08/02/25 07:33 Source: patient Mode of arrival: ambulatory Limitations: no limitations History of Present Illness HPI narrative: Dejan is an 80-year-old male with hyperlipidemia, atrial fibrillation on long-term anticoagulation with Eliquis , scheduled ablation and pacemaker on 08/15, presents emergency department via private car with continuous nosebleed. Patient was seen here early this morning with right-sided nose bleed, area was cauterized with silver nitrate, rhino rocket was applied, hemoglobin stable at 12.3. Patient was then discharged home. Bleeding again started early this morning around 5:30 a.m., she was unable to control the bleeding. Denies any difficulty swallowing or breathing, lot of the blood has been draining to the back of his throat. Patient denies any lightheadedness or dizziness. She denies any worsening shortness of breath or pain. Related Data Home Medications ?Medication ?Instructions ?Recorded ?Confirmed apixaban 5 mg tablet (Eliquis) 5 mg PO BID 12/18/22 08/02/25 atorvastatin 40 mg tablet 40 mg PO HS 12/18/22 08/02/25 leflunomide 20 mg tablet 20 mg PO DAILY 12/18/22 08/02/25 digoxin 125 mcg (0.125 mg) tablet 125 mcg PO DAILY 08/02/25 08/02/25 finasteride 5 mg tablet 5 mg PO DAILY 08/02/25 08/02/25 flecainide 50 mg tablet 75 mg PO BID 08/02/25 08/02/25 furosemide 20 mg tablet 20 mg PO DAILY 08/02/25 08/02/25 loratadine 10 mg tablet (Claritin) 10 mg PO DAILY PRN 08/02/25 08/02/25 melatonin 3 mg capsule 6 mg PO HS PRN 08/02/25 08/02/25 Previous Rx's ?Medication ?Instructions ?Recorded amoxicillin 875 mg-potassium 1 tab PO BID #10 tabs 08/02/25 clavulanate 125 mg tablet Allergies Allergy/AdvReac Type Severity Reaction Status Date / Time amiodarone Allergy Mild Verified 08/02/25 07:37 hydroxychloroquine Allergy Mild Swelling/Ra Verified 08/02/25 07:37 sh sotalol Allergy Mild Rash Verified 08/02/25 07:37 adhesive tape Allergy Unknown Verified 08/02/25 07:37 grass pollen Allergy Unknown Verified 08/02/25 07:37 silicone Allergy Unknown Verified 08/02/25 07:37 venom-wasp Allergy Unknown Verified 08/02/25 07:37 yellow jacket venom Allergy Mild Uncoded 12/18/22 18:34 Review of Systems Status of ROS: Reports: 10 or more systems reviewed and unremarkable except as noted in History and below PFSH PFS Medical History (Updated 08/02/25 @ 11:12 by Luz Chávez MD) BPH w urinary obs/LUTS ?N40.1 - Benign prostatic hyperplasia with lower urinary tract symptoms (ICD-10) ?N13.8 - Other obstructive and reflux uropathy (ICD-10) Atrial fibrillation and flutter ?I48.91 - Unspecified atrial fibrillation (ICD-10) ?I48.92 - Unspecified atrial flutter (ICD-10) Rheumatoid arthritis ?M06.9 - Rheumatoid arthritis, unspecified (ICD-10) Left acute arterial ischemic stroke, MCA (middle cerebral artery) ?I63.512 - Cerebral infarction due to unspecified occlusion or stenosis of left middle cerebral artery (ICD-10) Lymphocytic colitis ?K52.832 - Lymphocytic colitis (ICD-10) Hyperlipidemia ?E78.5 - Hyperlipidemia, unspecified (ICD-10) HFrEF (heart failure with reduced ejection fraction) ?I50.20 - Unspecified systolic (congestive) heart failure (ICD-10) Lower extremity edema ?R60.0 - Localized edema (ICD-10) Surgical History (Updated 08/02/25 @ 11:12 by Luz Chávez MD) History of prostate surgery ?Z98.890 - Other specified postprocedural states (ICD-10) H/O cardiac radiofrequency ablation ?Z98.890 - Other specified postprocedural states (ICD-10) Hx laparoscopic cholecystectomy ?Z90.49 - Acquired absence of other specified parts of digestive tract (ICD-10) H/O hernia repair ?Z98.890 - Other specified postprocedural states (ICD-10) ?Z87.19 - Personal history of other diseases of the digestive system (ICD-10) Social History Smoking Status: Never smoker How often do you have a drink containing alcohol: never AUDIT-C Alcohol total score: 0 Non-prescribed substance use: denies use Exam Narrative: Exam Narrative: General: No obvious distress sitting comfortably HEENT: Active bleeding of the right Nare, unable to visualize any vessel Blood and clots in the post oropharyngeal area Lungs: No stridor, no wheezing, clear to auscultation Abdomen soft Heart: Normal sinus rhythm Const: Vital Signs, click to edit/add: Vital Signs - 24 hr 08/02/25 07:40 08/02/25 08:40 08/02/25 08:44 Temperature 98.2 F Pulse Rate 119 H Pulse Rate [Left P ulse Oximeter] 117 H Respiratory Rate 16 22 Blood Pressure 154/83 H Blood Pressure [Le ft Upper Arm] 133/85 Pulse Oximetry 96 96 Oxygen Delivery Me thod Room Air 08/02/25 08:45 08/02/25 08:50 08/02/25 08:59 Temperature Pulse Rate 120 H 116 H Pulse Rate [Left P ulse Oximeter] Respiratory Rate 16 Blood Pressure 151/86 H Blood Pressure [Le ft Upper Arm] Pulse Oximetry 96 95 96 Oxygen Delivery Me thod 08/02/25 09:00 08/02/25 09:10 08/02/25 09:15 Temperature Pulse Rate 117 H 118 H Pulse Rate [Left P ulse Oximeter] Respiratory Rate Blood Pressure Blood Pressure [Le ft Upper Arm] Pulse Oximetry 96 95 95 Oxygen Delivery Me thod 08/02/25 09:31 08/02/25 09:40 08/02/25 09:54 Temperature Pulse Rate Pulse Rate [Left P ulse Oximeter] Respiratory Rate Blood Pressure Blood Pressure [Le ft Upper Arm] Pulse Oximetry 95 96 95 Oxygen Delivery Me thod 08/02/25 10:00 08/02/25 10:10 08/02/25 10:20 Temperature Pulse Rate Pulse Rate [Left P ulse Oximeter] Respiratory Rate Blood Pressure Blood Pressure [Le ft Upper Arm] Pulse Oximetry 95 95 96 Oxygen Delivery Me thod 08/02/25 10:30 08/02/25 10:40 08/02/25 10:50 Temperature Pulse Rate Pulse Rate [Left P ulse Oximeter] Respiratory Rate Blood Pressure Blood Pressure [Le ft Upper Arm] Pulse Oximetry 97 93 94 Oxygen Delivery Me thod 08/02/25 10:58 08/02/25 11:00 Temperature Pulse Rate 119 H Pulse Rate [Left P ulse Oximeter] Respiratory Rate Blood Pressure Blood Pressure [Le ft Upper Arm] Pulse Oximetry 97 Oxygen Delivery Me thod Course Course ED Course: 7:45 AM: aidet performed. Vitals are stable at this time, workup will include Afrin spray and TXA applied to 2 x 2 and anterior packing with nasal clamp. Patient continues to bleed, 9 cm Merocel placed with bacitracin. Patient was monitored and continues to bleed. Will obtain EKG, CBC, INR, type and screen, metabolic panel. Patient would likely benefit from admission. Reevaluation(s) Time of Reevaluation #1: 10:46 Reevaluation #1: CBC showed no worsening anemia, hemoglobin 12.6, INR 1.19, metabolic panel within normal limits, EKG showed an accelerated junctional rhythm, bpm 118, there was some more ST depression than previous, will reach out to Cardiology [facility]. After placing posterior packing with a double balloon epistaxis finally stopped. Please see procedure note. Dr. Mcgowan was able to come see the patient. Decision would be to admit for observation, he will see the patient tomorrow morning. Patient to receive his digoxin for rate control, he did not take any of his medications this morning. Was able to speak to Cardiology, Camila Medina, Dr. Fuchs, he reviewed the EKG, similar to 06/27, more ST depression likely secondary to his rate, patient did not receive his digoxin 125 mcg, he received this in the ER prior to admission, cardiology would not do anything different if admitted [facility]. Dr. Denney he will see the patient tomorrow morning. Spoke with Adriana Monzon, she accepts care of the patient to [facility] surgery observation bed. Vital Signs Vital signs: Initial Vital Signs Temperature 98.2 F 08/02/25 07:40 Temperature Source Temporal Artery Scan 08/02/25 07:40 Pulse Rate 117 H 08/02/25 07:40 Respiratory Rate 16 08/02/25 07:40 Respiratory Effort Normal, Spontaneous, Non-Labored 08/02/25 07:40 Respiratory Depth Normal 08/02/25 07:40 Blood Pressure 133/85 08/02/25 07:40 Blood Pressure Mean 101 08/02/25 07:40 Blood Pressure Position Sitting 08/02/25 07:40 Pulse Oximetry 96 08/02/25 07:40 Oxygen Delivery Method Room Air 08/02/25 07:40 Vital Signs Temperature 98.2 F 08/02/25 07:40 Pulse Rate 117 H 08/02/25 07:40 Respiratory Rate 16 08/02/25 07:40 Blood Pressure 133/85 08/02/25 07:40 Pulse Oximetry 96 08/02/25 07:40 Oxygen Delivery Method Room Air 08/02/25 07:40 Temperature 98.2 F 08/02/25 07:40 Pulse Rate 119 H 08/02/25 10:58 Respiratory Rate 16 08/02/25 08:59 Blood Pressure 151/86 H 08/02/25 08:59 Pulse Oximetry 97 08/02/25 11:00 Oxygen Delivery Method Room Air 08/02/25 07:40 Medications Administered Medications: Discontinued Medications Generic Name Dose Route Start Last Admin Trade Name Freq PRN Reason Stop Dose Admin Digoxin 125 mcg 08/02/25 10:42 08/02/25 10:58 Digoxin 125 Mcg Tablet PO 08/02/25 10:43 125 mcg ONCE ONE Administration Sodium Chloride 1,000 mls @ 1,000 mls/hr 08/02/25 08:12 08/02/25 10:04 0.9 % Sodium Chloride 1000 Ml IV 08/02/25 09:11 Infused .Q1H LETY Infusion Oxymetazoline HCl 1 each 08/02/25 07:42 08/02/25 07:59 Oxymetazoline (Afrin) Soak TOPICAL 08/02/25 07:43 1 each ONCE ONE Administration Medical Decision Making Lab Data Labs: Lab Results 08/02/25 Range/Units 08:20 WBC 4.60 (4.50-11.00) K/uL RBC 4.28 L (4.30-5.90) m/uL Hgb 12.6 L (13.5-17.5) gm/dL Hct 40.4 (37.0-53.0) % MCV 94 (80-100) fL MCH 29 (26-34) pg MCHC 31 L (32-36) gm/dL RDW Coeff of Ameena 15.0 (11.5-15.5) % Plt Count 283 (140-440) K/uL Neut % (Auto) 66.3 (42.0-72.0) % Lymph % (Auto) 16.1 L (20-44) % [place] % (Auto) 13.0 H (0.0-11.0) % Eos % (Auto) 3.7 (0.0-7.0) % Baso % (Auto) 0.7 (0.0-3.0) % Neut # (Auto) 3.05 (1.7-7.0) K/uL Lymph # (Auto) 0.70 L (0.90-2.90) K/uL [place] # (Auto) 0.60 (0.00-0.90) K/UL Eos # (Auto) 0.17 (0.00-0.50) K/uL Baso # (Auto) 0.03 (0.00-0.30) K/uL Abs Immat Gran (auto) 0.01 (0.00-0.30) K/uL Imm/Tot Granulo (auto) 0.2 % INR 1.19 H (0.91-1.10) Sodium 136 (135-149) mmol/L Potassium 3.6 (3.6-5.1) mmol/L Chloride 101 (96-114) mmol/L Carbon Dioxide 28 (20-32) mmol/L Anion Gap 7 (7-15) mEq/L BUN 21 (7-30) mg/dL Creatinine 0.8 (0.5-1.5) mg/dL Estimated Creat Clear 46.46 Estimated GFR 89 ml/min Glucose 115 (60-115) mg/dL Calcium 9.4 (8.4-10.6) mg/dL Blood Type A Positive Antibody Screen NEGATIVE Discharge Plan Discharge Clinical Impression: Epistaxis Patient Disposition: Admitted As Observation Condition: Improved Activity Level: No Restrictions Procedures Epistaxis Control Time Out Performed: No Nostril: Yes right Nose prepped with: Yes oxymetazoline and Yes other (TXA) Direct inspection: Yes unable to visualize Clots removed by: Yes blowing nose and Yes manually Epistaxis treatment: Yes TXA soaked gauze, Yes nasal tampon and Yes other (Double balloon posterior packing) Results of treatment: Yes bleeding controlled Estimated blood loss (if any): other (specify) (25 ml) Complications: Yes none Conclusion: patient tolerated procedure
[2025-08-02] MEDS: OXYMETAZOLINE (AFRIN) SOAK 1 EACH TOPICAL (07:59)
[2025-08-02 08:33] LABS: Hematocrit* 40.4 % (37.0-53.0); Hemoglobin* 12.6 gm/dL (13.5-17.5); Immature Granulocytes Abs Auto 0.01 K/uL (0.00-0.30); Immature Granulocytes Pct Auto 0.2 %; Mean Corpuscular HGB Conc 31 gm/dL (32-36); Mean Corpuscular Hemoglobin 29 pg (26-34); Mean Corpuscular Volume 94 fL (80-100); RDW Coefficient of Variation % 15.0 % (11.5-15.5); Red Blood Count* 4.28 m/uL (4.30-5.90); White Blood Count* 4.60 K/uL (4.50-11.00)
[2025-08-02 08:37] LABS: Lymphocytes Absolute Auto 0.70 K/uL (0.90-2.90); Slide Review Reflex No
--- OUTSIDE RECORDS SUMMARY | 2025-08-02 08:40 | XMS_ITS ---
Author Organization [facility] Care Team Providers Care Bellmaker Name Role Phone ^\\, ^\\ Unavailable Unavailable Brook Cottrell Unavailable Unavailable Jameson Stallings Unavailable Unavailable Allergies and adverse reactions Code CodeSystem Substance Reaction Severity StartDate Concern Status Venoms Unknown 11/29/2019 active Hymenoptera Unknown 11/29/2019 active GRASS POLLEN Unknown 11/29/2019 active Adhesive Tape Unknown 11/29/2019 active Care Team Name Role Address Phone Organization Dates Jameson Stallings [address], [place], [address], [place] (Office): [facility] 11/29/2019 - 12/11/2019 ^\\ ^\\ [place] [facility] 11/29/2019 - 12/11/2019 Brook Cottrell [address] [place] [address] , [place], [address], [place] (Office): : (Pager): [facility] 11/29/2019 - 12/11/2019 Immunizations Immunization Status [...] completed tuberculin skin test; unspecified formulation lotNumber: [id number] expiry: 01/30/2022 Mfg: [employer] Given 0.1 ml Left Forearm intradermally Step [...] ACUTE ON CHRONIC RIGHT HEART FAILURE 11/29/[id number] active 2 BENIGN PROSTATIC HYPERPLASIA WITH LOWER URINARY TRACT SYMPTOMS 11/29/[address] active 3 BLINDNESS, ONE EYE, UNSPECIFIED EYE 11/29/[address] active 4 EDEMA, UNSPECIFIED 11/29/[address] active 5 ENCOUNTER FOR SURGICAL AFTERCARE FOLLOWING 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 11/29/[address] active 6 HYPERLIPIDEMIA, UNSPECIFIED 11/29/[address] active 7 INSOMNIA, UNSPECIFIED 11/29/[address] active 8 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 (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) USE OF ANTICOAGULANTS 11/29/[address] active 9 MALE ERECTILE DYSFUNCTION, UNSPECIFIED 11/29/[address] active 10 MICROSCOPIC COLITIS, UNSPECIFIED 11/29/[address] active 11 OTHER INTERVERTEBRAL DISC DISPLACEMENT, LUMBAR REGION 11/29/[address] active 12 OTHER OBSTRUCTIVE AND REFLUX UROPATHY 11/29/[address] active 13 OTHER SPECIFIED POSTPROCEDURAL STATES 11/29/[address] active 14 PERSONAL HISTORY OF TRANSIENT ISCHEMIC ATTACK (TIA), AND CEREBRAL INFARCTION WITHOUT RESIDUAL DEFICITS 11/29/[address] active 15 RASH AND OTHER NONSPECIFIC SKIN ERUPTION 11/29/[address] active 16 RETENTION OF URINE, UNSPECIFIED 11/29/[address] active 17 RHEUMATIC TRICUSPID INSUFFICIENCY 11/29/[address] active 18 UNSPECIFIED ATRIAL FIBRILLATION 11/29/[address] active 19 UNSPECIFIED ATRIAL FLUTTER 11/29/[address] active 20 UNSPECIFIED HEARING LOSS, UNSPECIFIED EAR 11/29/[address] active Reason for Referral No Reasons for Referral Entered Social History Social History Observation Description Start Date End Date Code Code System Current Smoking Status Tobacco smoking consumption unknown 353325652 SNOMED CT Sex Assigned At Male 1945 83958-6 [facility] Gender Identity Sexual Orientation Vital Signs Code Code System Vitals Name Values and Units Timing Information 9279-1 [facility] Respiratory Rate Value=18.0 Units=/m in 12/11/2019 8462-4 [facility] Blood Pressure-Diastolic Value=65 Un its=mmHg 12/11/2019 8480-6 [facility] Blood Pressure-Systolic Wtvjd=646 Un its=mmHg 12/11/2019 8310-5 [facility] Body Temperature Value=98.1 Units= F 12/11/2019 8867-4 [facility] Heart rate Value=84.0 Units=/min 01/2020 80360-7 [facility] O2 % BldC Oximetry Value=98.0 Units= % 12/11/2019 59471-4 [facility] Pain Level Value=0.0 12/11/2019 38806-3 [facility] Weight Gbsgr=769.4 Units=Lbs 01/2020 8302-2 [facility] Height Value=67.0 Units=Inches 11/29/2019
[2025-08-02 09:04] LABS: INR 1.19 (0.91-1.10); Prothrombin Time 16.0 Seconds
[2025-08-02 09:13] LABS: Chloride* 101 mmol/L (96-114); Sodium* 136 mmol/L (135-149)
[2025-08-02 09:14] LABS: Potassium* 3.6 mmol/L (3.6-5.1)
[2025-08-02 09:16] LABS: Blood Urea Nitrogen* 21 mg/dL (7-30); Creatinine* 0.8 mg/dL (0.5-1.5); Est. Creatinine Clearance* 46.46; Estimated Glomerular Filt Rate 89 ml/min
[2025-08-02 09:17] LABS: Anion Gap 7 mEq/L (7-15); Calcium* 9.4 mg/dL (8.4-10.6); Carbon Dioxide* 28 mmol/L (20-32); Glucose* 115 mg/dL (60-115)
[2025-08-02] MEDS: DIGOXIN 125 MCG TABLET PO (10:58)
--- NOTE | 2025-08-02 11:05 | PM.IMHP1 ---
Assessment and Plan Assessment and plan (1) Epistaxis: Problem comment: - started morning of 08/02, currently has posterior packing with double balloon and TXA soaked gauze in R nare - Dr. Mcgowan will see patient morning of 08/03, does not require NPO status - Keflex for antibiotic prophylaxis Status: Acute (2) Atrial fibrillation and flutter: Problem comment: - continue home doses of Digoxin and Flecainide, has f/u with EP scheduled as an outpatient (notably, ablation on 08/15 which may need to be rescheduled given interruption of anticoagulation 2/2 epistaxis) Status: Acute (3) HFrEF (heart failure with reduced ejection fraction): Problem comment: - last TTE 03/2025: Final Impressions: 1. Normal LV size, normal wall thickness, mildly reduced global systolic function with an estimated EF of 45 - 50%. Mild global hypokinesis. 2. Right ventricular cavity size is moderately enlarged, global systolic RV function is mildly reduced. 3. Moderate tricuspid regurgitation. Status: Acute (4) Anticoagulant long-term use: Problem comment: - last dose of Eliquis was PM of 08/01; HOLDING per ENT given epistaxis Status: Acute (5) Rheumatoid arthritis: Problem comment: - on Leflunomide Status: Acute Plan - per above (hold anticoagulation, keep packing in, abx prophylaxis with keflex, ENT tomorrow morning) Hospitalist- H&P: HPI History of Present Illness Date Seen: 08/02/25 Chief complaint: Nose bleed Narrative: Dejan eHrnández is a 80 year old male who is anticoagulated on Eliquis for a history of AFib who presented to the ER early this morning for a nose bleed. He was seen in the emergency room for a right nare bleed around 5:00 a.m. this morning; it was packed, then treated with silver nitrate, and rhino rocket placed upon discharge with close ENT follow-up recommended. Hemoglobin stable at 12.3. Patient got home and bleeding restarted; unable to control this at home. Noted to have blood draining posteriorly without dysphagia or odynophagia. ER: - Hgb 12.6, INR 1.19 - R nare packed with TXA soaked gauze and double balloon posterior packing, Dr. Mcgowan consulted and will see patient 08/03 in the morning - EKG c/w accelerated junctional rhythm, + ST depression. Patient having no chest pain or dyspnea - ER physician reviewed EKG findings with Cardiology who felt that ST changes likely related to rapid rate (patient missed his Flecainide and Digoxin this morning), history of junctional rhythm on previous EKG Histories reviewed and updated below; Dr. Ferguson is PCP. Dr. Salinas is Clinical Laboratory Service Teacher. Review of Systems Narrative: - no chest pain or dyspnea - no nausea - can tell HR is faster than baseline, but no lightheadedness or dizziness Medical Decision Making Medical Decision Making Code Status: DNR During This Stay, Who Would You Like To Make Decisions For You In The Event You Are Unable To Make Them For Yourself?: Yohan Almeida [facility] Medical History (Updated 08/02/25 @ 12:05 by Luz Chávez MD) BPH w urinary obs/LUTS ?N40.1 - Benign prostatic hyperplasia with lower urinary tract symptoms (ICD-10) ?N13.8 - Other obstructive and reflux uropathy (ICD-10) Atrial fibrillation and flutter ?I48.91 - Unspecified atrial fibrillation (ICD-10) ?I48.92 - Unspecified atrial flutter (ICD-10) Rheumatoid arthritis ?M06.9 - Rheumatoid arthritis, unspecified (ICD-10) Left acute arterial ischemic stroke, MCA (middle cerebral artery) ?I63.512 - Cerebral infarction due to unspecified occlusion or stenosis of left middle cerebral artery (ICD-10) Lymphocytic colitis ?K52.832 - Lymphocytic colitis (ICD-10) Hyperlipidemia ?E78.5 - Hyperlipidemia, unspecified (ICD-10) HFrEF (heart failure with reduced ejection fraction) ?I50.20 - Unspecified systolic (congestive) heart failure (ICD-10) Lower extremity edema ?R60.0 - Localized edema (ICD-10) Surgical History (Updated 08/02/25 @ 11:12 by Luz Chávez MD) History of prostate surgery ?Z98.890 - Other specified postprocedural states (ICD-10) H/O cardiac radiofrequency ablation ?Z98.890 - Other specified postprocedural states (ICD-10) Hx laparoscopic cholecystectomy ?Z90.49 - Acquired absence of other specified parts of digestive tract (ICD-10) H/O hernia repair ?Z98.890 - Other specified postprocedural states (ICD-10) ?Z87.19 - Personal history of other diseases of the digestive system (ICD-10) Social History Smoking Status: Never smoker How often do you have a drink containing alcohol: never AUDIT-C Alcohol total score: 0 Non-prescribed substance use: denies use Meds Home Medications and Allergies Home Medications ?Medication ?Instructions ?Recorded ?Confirmed ?Type apixaban 5 mg tablet (Eliquis) 5 mg PO BID 12/18/22 08/02/25 History atorvastatin 40 mg tablet 40 mg PO HS 12/18/22 08/02/25 History leflunomide 20 mg tablet 20 mg PO DAILY 12/18/22 08/02/25 History amoxicillin 875 mg-potassium 1 tab PO BID #10 tabs 08/02/25 08/02/25 Rx clavulanate 125 mg tablet digoxin 125 mcg (0.125 mg) tablet 125 mcg PO DAILY 08/02/25 08/02/25 History finasteride 5 mg tablet 5 mg PO DAILY 08/02/25 08/02/25 History flecainide 50 mg tablet 75 mg PO BID 08/02/25 08/02/25 History furosemide 20 mg tablet 20 mg PO DAILY 08/02/25 08/02/25 History loratadine 10 mg tablet (Claritin) 10 mg PO DAILY PRN 08/02/25 08/02/25 History melatonin 3 mg capsule 6 mg PO HS PRN 08/02/25 08/02/25 History Allergies Allergy/AdvReac Type Severity Reaction Status Date / Time amiodarone Allergy Mild Verified 08/02/25 07:37 hydroxychloroquine Allergy Mild Swelling/Ra Verified 08/02/25 07:37 sh sotalol Allergy Mild Rash Verified 08/02/25 07:37 adhesive tape Allergy Unknown Verified 08/02/25 07:37 grass pollen Allergy Unknown Verified 08/02/25 07:37 silicone Allergy Unknown Verified 08/02/25 07:37 venom-wasp Allergy Unknown Verified 08/02/25 07:37 yellow jacket venom Allergy Mild Uncoded 12/18/22 18:34 Exam Narrative: Exam Narrative: GEN: Alert and oriented, sitting comfortably in bedside chair and nontoxic HEENT: EOMIs bilaterally, no scleral icterus. Right nare is packed without any oozing around packing, oropharynx is moist and clear CV: Rhythm is irregular, rate 100-110s R: Clear lungs bilaterally without any wheezing, rales, or rhonchi Ab: Soft, nontender to palpation Ext: wwp, trace BLE edema. No significant joint effusions or abnormalities on upper extremities Skin: No concerning skin lesions or rashes on exposed skin Neuro: No focal deficits Psych: Appropriate Const: Vital Signs, click to edit/add: Vital Signs - 24 hr 08/02/25 07:40 08/02/25 08:40 08/02/25 08:44 Temperature 98.2 F Pulse Rate 119 H Pulse Rate [Left P ulse Oximeter] 117 H Respiratory Rate 16 22 Blood Pressure 154/83 H Blood Pressure [Le ft Upper Arm] 133/85 Pulse Oximetry 96 96 Oxygen Delivery Me thod Room Air 08/02/25 08:45 08/02/25 08:50 08/02/25 08:59 Temperature Pulse Rate 120 H 116 H Pulse Rate [Left P ulse Oximeter] Respiratory Rate 16 Blood Pressure 151/86 H Blood Pressure [Le ft Upper Arm] Pulse Oximetry 96 95 96 Oxygen Delivery Me thod 08/02/25 09:00 08/02/25 09:10 08/02/25 09:15 Temperature Pulse Rate 117 H 118 H Pulse Rate [Left P ulse Oximeter] Respiratory Rate Blood Pressure Blood Pressure [Le ft Upper Arm] Pulse Oximetry 96 95 95 Oxygen Delivery Me thod 08/02/25 09:31 08/02/25 09:40 08/02/25 09:54 Temperature Pulse Rate Pulse Rate [Left P ulse Oximeter] Respiratory Rate Blood Pressure Blood Pressure [Le ft Upper Arm] Pulse Oximetry 95 96 95 Oxygen Delivery Me thod 08/02/25 10:00 08/02/25 10:10 08/02/25 10:20 Temperature Pulse Rate Pulse Rate [Left P ulse Oximeter] Respiratory Rate Blood Pressure Blood Pressure [Le ft Upper Arm] Pulse Oximetry 95 95 96 Oxygen Delivery Me thod 08/02/25 10:30 08/02/25 10:40 08/02/25 10:50 Temperature Pulse Rate Pulse Rate [Left P ulse Oximeter] Respiratory Rate Blood Pressure Blood Pressure [Le ft Upper Arm] Pulse Oximetry 97 93 94 Oxygen Delivery Me thod 08/02/25 10:58 08/02/25 11:00 Temperature Pulse Rate 119 H Pulse Rate [Left P ulse Oximeter] Respiratory Rate Blood Pressure Blood Pressure [Le ft Upper Arm] Pulse Oximetry 97 Oxygen Delivery [facility] Hospitalist - H&P: Result Labs Labs: Short CBC 08/02/25 Range/Units 08:20 WBC 4.60 (4.50-11.00) K/uL Hgb 12.6 L (13.5-17.5) gm/dL Hct 40.4 (37.0-53.0) % Plt Count 283 (140-440) K/uL BMP 08/02/25 08:20 Sodium 136 Potassium 3.6 Chloride 101 Carbon Dioxide 28 BUN 21 Creatinine 0.8 Glucose 115 Calcium 9.4
[2025-08-02] MEDS: FLECAINIDE ACETATE 50 MG TABLET 75 MG PO ×2 (11:25→21:06)
[2025-08-02 13:15] LABS: Hemoglobin* 11.2 gm/dL (13.5-17.5)
--- NOTE | 2025-08-02 18:38 | PC.NURSE ---
Pt arrived to the unit @ 1104. AxOx3, pleasant, and cooperative with cares. LSCTA on RA. Denies pain/SOB/CP/dizziness/nausea. Nares remain clamped with a double lumen present. Sinus tachycardia on TELE. Indep in room. Tolerating reg diet and fluids well. Continent of the bladder. Reports having reflux of blood intermittently, reported to MD Monzon. TEDs in place. SL. Call light within reach.
[2025-08-02] MEDS: ATORVASTATIN CALCIUM 40 MG TABLET PO (21:06)
[2025-08-02] MEDS: SODIUM CHLORIDE 0.9 % (FLUSH) 10 ML SYRINGE 5 ML IVF (21:09)
[2025-08-02 23:08] LABS: Hemoglobin* 11.9 gm/dL (13.5-17.5)
[2025-08-03 03:00] VITALS: BP 141/84; PULSE 103; RESP 17; TEMP 36.9; O2SAT 95
[2025-08-03 06:38] LABS: Hematocrit* 35.9 % (37.0-53.0); Hemoglobin* 11.4 gm/dL (13.5-17.5); Immature Granulocytes Abs Auto 0.01 K/uL (0.00-0.30); Immature Granulocytes Pct Auto 0.2 %; Lymphocytes Absolute Auto 0.70 K/uL (0.90-2.90); Mean Corpuscular HGB Conc 32 gm/dL (32-36); Mean Corpuscular Hemoglobin 30 pg (26-34); Mean Corpuscular Volume 95 fL (80-100); RDW Coefficient of Variation % 15.0 % (11.5-15.5); Red Blood Count* 3.78 m/uL (4.30-5.90); White Blood Count* 5.38 K/uL (4.50-11.00)
[2025-08-03 06:43] LABS: Slide Review Reflex No
--- NOTE | 2025-08-03 06:44 | PC.NURSE ---
Pt is alert and oriented. Double lumen balloon in right nare. Pt reported swallowing increased amounts of blood, MD assessed, clamp removed, hbg unremarkable. Denies pain. Pt is independent.?
[2025-08-03 06:46] LABS: Chloride* 104 mmol/L (96-114); Sodium* 136 mmol/L (135-149)
[2025-08-03 06:47] LABS: Potassium* 3.8 mmol/L (3.6-5.1)
[2025-08-03 06:49] LABS: Blood Urea Nitrogen* 13 mg/dL (7-30); Creatinine* 0.7 mg/dL (0.5-1.5); Est. Creatinine Clearance* 46.16; Estimated Glomerular Filt Rate 93 ml/min
[2025-08-03 06:50] LABS: Anion Gap 2 mEq/L (7-15); Calcium* 8.8 mg/dL (8.4-10.6); Carbon Dioxide* 30 mmol/L (20-32); Glucose* 96 mg/dL (60-115)
[2025-08-03 07:00] VITALS: BP 145/80; PULSE 91; PULSE 94; RESP 12; TEMP 35.6; O2SAT 94
[2025-08-03 07:15] VITALS: PULSE 91
[2025-08-03 08:34] VITALS: PULSE 106
[2025-08-03] MEDS: FINASTERIDE 5 MG TABLET PO (08:34)
[2025-08-03] MEDS: DIGOXIN 125 MCG TABLET PO (08:34)
[2025-08-03] MEDS: FLECAINIDE ACETATE 50 MG TABLET 75 MG PO (08:35)
[2025-08-03] MEDS: SODIUM CHLORIDE 0.9 % (FLUSH) 10 ML SYRINGE 5 ML IVF (08:41)
--- NOTE | 2025-08-03 09:22 | W.PM.ENTCN ---
HPI- ENT Consult Date of Consult Date Seen: 08/02/25 Consult date: 08/03/25 Requesting Physician: Other Primary Care Provider: Gerardo Ferguson MD Consult Narrative Reason for consult: Epistaxis Narrative: Dejan Hernández is a 80 year old male who had a fairly mid massive epistaxis this morning difficult to control with packing. A dual-chamber balloon was placed prior to my arrival and that is mostly stopped all bleeding. He has a slight ooze around the anterior portion balloon and nothing in the throat. Is on anticoagulation. No prior history of significant nosebleeds. He is on Eliquis for AFib. He has a scheduled ablation in early August [facility] Medical History (Updated 08/02/25 @ 12:05 by Luz Chávez MD) BPH w urinary obs/LUTS ?N40.1 - Benign prostatic hyperplasia with lower urinary tract symptoms (ICD-10) ?N13.8 - Other obstructive and reflux uropathy (ICD-10) Atrial fibrillation and flutter ?I48.91 - Unspecified atrial fibrillation (ICD-10) ?I48.92 - Unspecified atrial flutter (ICD-10) Rheumatoid arthritis ?M06.9 - Rheumatoid arthritis, unspecified (ICD-10) Left acute arterial ischemic stroke, MCA (middle cerebral artery) ?I63.512 - Cerebral infarction due to unspecified occlusion or stenosis of left middle cerebral artery (ICD-10) Lymphocytic colitis ?K52.832 - Lymphocytic colitis (ICD-10) Hyperlipidemia ?E78.5 - Hyperlipidemia, unspecified (ICD-10) HFrEF (heart failure with reduced ejection fraction) ?I50.20 - Unspecified systolic (congestive) heart failure (ICD-10) Lower extremity edema ?R60.0 - Localized edema (ICD-10) Surgical History (Updated 08/02/25 @ 11:12 by Luz Chávez MD) History of prostate surgery ?Z98.890 - Other specified postprocedural states (ICD-10) H/O cardiac radiofrequency ablation ?Z98.890 - Other specified postprocedural states (ICD-10) Hx laparoscopic cholecystectomy ?Z90.49 - Acquired absence of other specified parts of digestive tract (ICD-10) H/O hernia repair ?Z98.890 - Other specified postprocedural states (ICD-10) ?Z87.19 - Personal history of other diseases of the digestive system (ICD-10) Social History What is your current living situation?: I presently have a place to live Problems where you live: no known problems Problems where you live details: N/A In the past 12 months, utilities in danger of being shut off: no In past 12 months, lack of transportation kept you from medical appts, meetings, work, or getting things needed for daily living: no In the past 12 mos, have been you worried that your food would run out before you had money to buy more?: never true In the past 12 mos, the food you bought just didn't last and you didn't have money to buy more?: never true Highest level of school completed/degree received: Master's degree Smoking Status: Never smoker How often do you have a drink containing alcohol: monthly or less Alcohol type: beer AUDIT-C Alcohol total score: 1 Non-prescribed substance use: denies use How often does anyone, including family, friends and others, physically hurt you: never How often does anyone, including family, friends and others, insult or talk down to you: never How often does anyone, including family, friends and others, threaten you with harm: never How often does anyone, including family, friends and others, scream or curse at you: never service: No Meds Home Medications and Allergies Home Medications ?Medication ?Instructions ?Recorded ?Confirmed ?Type apixaban 5 mg tablet (Eliquis) 5 mg PO BID 12/18/22 08/02/25 History atorvastatin 40 mg tablet 40 mg PO HS 12/18/22 08/02/25 History leflunomide 20 mg tablet 20 mg PO DAILY 12/18/22 08/02/25 History amoxicillin 875 mg-potassium 1 tab PO BID #10 tabs 08/02/25 08/02/25 Rx clavulanate 125 mg tablet digoxin 125 mcg (0.125 mg) tablet 125 mcg PO DAILY 08/02/25 08/02/25 History finasteride 5 mg tablet 5 mg PO DAILY 08/02/25 08/02/25 History flecainide 50 mg tablet 75 mg PO BID 08/02/25 08/02/25 History furosemide 20 mg tablet 20 mg PO DAILY 08/02/25 08/02/25 History loratadine 10 mg tablet (Claritin) 10 mg PO DAILY PRN 08/02/25 08/02/25 History melatonin 3 mg capsule 6 mg PO HS PRN 08/02/25 08/02/25 History Allergies Allergy/AdvReac Type Severity Reaction Status Date / Time amiodarone Allergy Mild Verified 08/02/25 07:37 hydroxychloroquine Allergy Mild Swelling/Ra Verified 08/02/25 07:37 sh sotalol Allergy Mild Rash Verified 08/02/25 07:37 adhesive tape Allergy Unknown Verified 08/02/25 07:37 grass pollen Allergy Unknown Verified 08/02/25 07:37 silicone Allergy Unknown Verified 08/02/25 07:37 venom-wasp Allergy Unknown Verified 08/02/25 07:37 yellow jacket venom Allergy Mild Uncoded 12/18/22 18:34 Exam Narrative: Exam Narrative: General skin neuro respiratory gait peripheral vascular vocal quality skin of head neck are all negative except balloon in place no active bleeding no excess pressure on nares Const: Vital Signs, click to edit/add: Vital Signs - 24 hr 08/02/25 09:31 08/02/25 09:40 08/02/25 09:54 Temperature Pulse Rate Pulse Rate [Pulse Oximeter] Respiratory Rate Blood Pressure [R Arm] Pulse Oximetry 95 96 95 [facility] 08/02/25 10:00 08/02/25 10:10 08/02/25 10:20 Temperature Pulse Rate Pulse Rate [Pulse Oximeter] Respiratory Rate Blood Pressure [R Arm] Pulse Oximetry 95 95 96 Oxygen Delivery [facility] 08/02/25 10:30 08/02/25 10:40 08/02/25 10:50 Temperature Pulse Rate Pulse Rate [Pulse Oximeter] Respiratory Rate Blood Pressure [R Arm] Pulse Oximetry 97 93 94 Oxygen Delivery [facility] 08/02/25 10:58 08/02/25 11:00 08/02/25 12:39 Temperature 98.1 F Pulse Rate 119 H Pulse Rate [Pulse Oximeter] 122 H Respiratory Rate 18 Blood Pressure [R Arm] 149/87 H Pulse Oximetry 97 95 [facility] 08/02/25 12:39 08/02/25 14:40 08/02/25 16:24 Temperature 97.4 F L Pulse Rate 113 H Pulse Rate [Pulse Oximeter] 111 H Respiratory Rate 18 Blood Pressure [R Arm] 128/82 Pulse Oximetry 97 Oxygen Delivery Me thod Room Air Room Air 08/02/25 20:30 08/02/25 22:30 08/02/25 23:00 Temperature 98.5 F 97.5 F L Pulse Rate 109 H Pulse Rate [Pulse Oximeter] 111 H 112 H Respiratory Rate 18 18 Blood Pressure [R Arm] 135/70 147/81 H Pulse Oximetry 95 96 Oxygen Delivery Me thod Room Air Room Air 08/03/25 03:00 08/03/25 07:00 08/03/25 07:00 Temperature 98.4 F 96.0 F L Pulse Rate Pulse Rate [Pulse Oximeter] 103 H 91 94 Respiratory Rate 17 12 Blood Pressure [R Arm] 141/84 H 145/80 H Pulse Oximetry 95 94 Oxygen Delivery Me thod Room Air Room Air 08/03/25 07:15 08/03/25 08:34 Temperature Pulse Rate 91 106 H Pulse Rate [Pulse Oximeter] Respiratory Rate Blood Pressure [R Arm] Pulse Oximetry Oxygen Delivery Me thod ENT-CN: Result Labs Labs: Short CBC 08/02/25 08/02/25 08/03/25 Range/Units 13:10 23:04 06:25 WBC 5.38 (4.50-11.00) K/uL Hgb 11.2 L 11.9 L 11.4 L (13.5-17.5) gm/dL Hct 35.9 L (37.0-53.0) % Plt Count 233 (140-440) K/uL BMP 08/02/25 08/03/25 08:20 06:25 Sodium 136 136 Potassium 3.6 3.8 Chloride 101 104 Carbon Dioxide 28 30 BUN 21 13 Creatinine 0.8 0.7 Glucose 115 96 Calcium 9.4 8.8 Assessment and Plan Assessment and plan (1) Epistaxis: Problem comment: - started morning of 08/02, currently has posterior packing with double balloon and TXA soaked gauze in R nare - Dr. Mcgowan will see patient morning of 08/03, does not require NPO status - Keflex for antibiotic prophylaxis Status: Acute Plan Severe epistaxis but hemoglobin is good at 11 6. Bleeding well controlled with dual-chamber pack. We gave him the option of transfer to the [facility] for embolization versus observation in the hospital overnight and leave pack in for 5 days. He chooses to stay in the hospital overnight. I will arrange I will see him in the morning and arrange follow-up in clinic on Wednesday Total Time Spent Total Time Spent: 60 minutes
--- NOTE | 2025-08-03 09:25 | P.ENTPN_ITS ---
ENT-PN: Subj Subjective Date Seen: 08/03/25 Progress Note: A&P Assessment and plan (1) Epistaxis: Problem details: - started morning of 08/02, currently has posterior packing with double balloon and TXA soaked gauze in R nare - Dr. Mcgowan will see patient morning of 08/03, does not require NPO status - Keflex for antibiotic prophylaxis Status: Acute Plan Severe epistaxis. He had some bleeding for a few minutes overnight but that stopped spontaneously. I think he is safe for discharge with understanding he returns if bleeding last for more than 10 minutes. His hemoglobin is stable and I will see him Wednesday in clinic Time Spent With Patient Total time spent: 20 minutes Exam Narrative: Exam Narrative: No current bleeding. Oximetry stable Const: Vital Signs, click to edit/add: Vital Signs - 24 hr 08/02/25 09:31 08/02/25 09:40 08/02/25 09:54 Temperature Pulse Rate Pulse Rate [Pulse Oximeter] Respiratory Rate Blood Pressure [R Arm] Pulse Oximetry 95 96 95 Oxygen Delivery Me thod 08/02/25 10:00 08/02/25 10:10 08/02/25 10:20 Temperature Pulse Rate Pulse Rate [Pulse Oximeter] Respiratory Rate Blood Pressure [R Arm] Pulse Oximetry 95 95 96 Oxygen Delivery Dc thod 08/02/25 10:30 08/02/25 10:40 08/02/25 10:50 Temperature Pulse Rate Pulse Rate [Pulse Oximeter] Respiratory Rate Blood Pressure [R Arm] Pulse Oximetry 97 93 94 Oxygen Delivery Me thod 08/02/25 10:58 08/02/25 11:00 08/02/25 12:39 Temperature 98.1 F Pulse Rate 119 H Pulse Rate [Pulse Oximeter] 122 H Respiratory Rate 18 Blood Pressure [R Arm] 149/87 H Pulse Oximetry 97 95 Oxygen Delivery Me thod Room Air 08/02/25 12:39 08/02/25 14:40 08/02/25 16:24 Temperature 97.4 F L Pulse Rate 113 H Pulse Rate [Pulse Oximeter] 111 H Respiratory Rate 18 Blood Pressure [R Arm] 128/82 Pulse Oximetry 97 Oxygen Delivery Me od Room Air Room Air 08/02/25 20:30 08/02/25 22:30 08/02/25 23:00 Temperature 98.5 F 97.5 F L Pulse Rate 109 H Pulse Rate [Pulse Oximeter] 111 H 112 H Respiratory Rate 18 18 Blood Pressure [R Arm] 135/70 147/81 H Pulse Oximetry 95 96 Oxygen Delivery Me thod Room Air Room Air 08/03/25 03:00 08/03/25 07:00 08/03/25 07:00 Temperature 98.4 F 96.0 F L Pulse Rate Pulse Rate [Pulse Oximeter] 103 H 91 94 Respiratory Rate 17 12 Blood Pressure [R Arm] 141/84 H 145/80 H Pulse Oximetry 95 94 Oxygen Delivery Me thod Room Air Room Air 08/03/25 07:15 08/03/25 08:34 Temperature Pulse Rate 91 106 H Pulse Rate [Pulse Oximeter] Respiratory Rate Blood Pressure [R Arm] Pulse Oximetry Oxygen Delivery Me thod ENT-PN: Obj Labs Labs: Laboratory Results - last 24 hr 08/02/25 08/02/25 08/02/25 08:20 12:17 13:10 WBC RBC Hgb 11.2 L Hct MCV MCH MCHC RDW Coeff of Ameena Plt Count Neut % (Auto) Lymph % (Auto) Faulkner % (Auto) Eos % (Auto) Baso % (Auto) Neut # (Auto) Lymph # (Auto) [place]ner # (Auto) Eos # (Auto) Baso # (Auto) Abs Immat Gran (auto) Imm/Tot Granulo (auto) Sodium Potassium Chloride Carbon Dioxide Anion Gap BUN Creatinine Estimated Creat Clear Estimated GFR Glucose Calcium TSH 1.120 Lab Acknowledgement Test Added Blood Type A Positive Antibody Screen NEGATIVE 08/02/25 08/03/25 23:04 06:25 WBC 5.38 RBC 3.78 L Hgb 11.9 L 11.4 L Hct 35.9 L MCV 95 MCH 30 MCHC 32 RDW Coeff of Ameena 15.0 Plt Count 233 Neut % (Auto) 70.9 Lymph % (Auto) 13.0 L Faulkner % (Auto) 11.3 H Eos % (Auto) 3.9 Baso % (Auto) 0.7 Neut # (Auto) 3.81 Lymph # (Auto) 0.70 L [place]ner # (Auto) 0.60 Eos # (Auto) 0.21 Baso # (Auto) 0.04 Abs Immat Gran (auto) 0.01 Imm/Tot Granulo (auto) 0.2 Sodium 136 Potassium 3.8 Chloride 104 Carbon Dioxide 30 Anion Gap 2 L BUN 13 Creatinine 0.7 Estimated Creat Clear 46.16 Estimated GFR 93 Glucose 96 Calcium 8.8 TSH Lab Acknowledgement Blood Type Antibody Screen
[2025-08-03 10:58] VITALS: BP 124/64; PULSE 97; RESP 12; TEMP 36.9; O2SAT 94
--- NOTE | 2025-08-03 11:15 | PM.DS1 ---
DS: Providers Provider Date Seen: 08/03/25 Date of admission: 08/02/25 11:03 Primary care physician: Gerardo Ferguson MD Admitting Clinician: Sherry Lomeli MD Consults: 08/02/25 11:47 Consult to Physician [CONS] Routine Comment: Dr. Mcgowan aware of patient, will see 08/03 am Consulting Provider: Beny Mcgowan Has provider been notified: Yes Attending Physician on discharge: Adriana Tamez [facility], PA-C [place] Hospitalist Date of Discharge: 08/03/25 DS: Diagnosis Discharge Diagnosis (1) Epistaxis: Status: Acute Problem details: - started morning of 08/02, currently has posterior packing with double balloon and TXA soaked gauze in R nare - Dr. Mcgowan will see patient morning of 08/03, does not require NPO status - Keflex for antibiotic prophylaxis Evaluated by Dr. Mcgowan on 08/03. Plans to keep packing in place. Continue on Keflex until follow-up in the ENT clinic on Tuesday 08/07. Continue to hold anticoagulation until follow-up in the ENT clinic. (2) Anticoagulant long-term use: Status: Acute Problem details: - last dose of Eliquis was PM of 08/01; HOLDING per ENT given epistaxis of anticoagulation 2/2 epistaxis) - CHADsVasc score 4 Discussed anticoagulation with regulatory affairs strategy specialist at [facility] prior to discharge on 08/03. Recommends continuing to hold anticoagulation until confirmation that bleeding has stopped. This will be evaluated in ENT clinic on Tuesday 08/07. Okay to resume anticoagulation at that time if no longer bleeding. (3) Atrial fibrillation and flutter: Status: Acute Problem details: - continue home doses of Digoxin and Flecainide, has f/u with EP scheduled as an outpatient (notably, ablation on 08/15 which may need to be rescheduled given interruption of anticoagulation 2/2 epistaxis) (4) HFrEF (heart failure with reduced ejection fraction): Status: Acute Problem details: - last TTE 03/2025: Final Impressions: 1. Normal LV size, normal wall thickness, mildly reduced global systolic function with an estimated EF of 45 - 50%. Mild global hypokinesis. 2. Right ventricular cavity size is moderately enlarged, global systolic RV function is mildly reduced. 3. Moderate tricuspid regurgitation. (5) Rheumatoid arthritis: Status: Acute Problem details: - on Leflunomide DS: Summary Hospital Course Hospital Course: Course of care and details as noted above. Admitted for observation following packing of right nare in setting of acute epistaxis while on oral anticoagulation. Evaluated by ENT. packing to remain in place until outpatient follow-up in ENT clinic on Tuesday 08/07. Continue Keflex until that time. Continue to hold anticoagulation until follow-up and confirmation of cessation of bleed. Okay to restart anticoagulation when bleeding has stopped. Remainder of chronic medical comorbidities were monitored and managed with home medications. Status at Discharge Functional status at discharge: independent ambulation Overall status at discharge: patient is back to baseline Time Spent with Patient Time attestation: Total time spent providing and/or coordinating discharge services: Time spent: Greater than 30 minutes Exam Narrative: Exam Narrative: PHYSICAL EXAM General: Pleasant, conversant, NAD HEENT: packing in place, right nostril. dried blood, no active bleed/ drainage Cardiovascular: RRR Pulmonary: No dyspnea Neurological: Alert, answering questions appropriately Skin: Warm, dry. Const: Vital Signs, click to edit/add: Vital Signs - 24 hr 08/02/25 12:39 08/02/25 12:39 08/02/25 14:40 Temperature 98.1 F 97.4 F L Pulse Rate Pulse Rate [Pulse Oximeter] 122 H 111 H Respiratory Rate 18 18 Blood Pressure [R Arm] 149/87 H 128/82 Pulse Oximetry 95 97 [facility] Room Air Room Air 08/02/25 16:24 08/02/25 20:30 08/02/25 22:30 Temperature 98.5 F 97.5 F L Pulse Rate 113 H Pulse Rate [Pulse Oximeter] 111 H 112 H Respiratory Rate 18 18 Blood Pressure [R Arm] 135/70 147/81 H Pulse Oximetry 95 96 [facility]xygen [facility] Room Air 08/02/25 23:00 08/03/25 03:00 08/03/25 07:00 Temperature 98.4 F Pulse Rate 109 H Pulse Rate [Pulse Oximeter] 103 H 91 Respiratory Rate 17 Blood Pressure [R Arm] 141/84 H Pulse Oximetry 95 [facility]xygen [facility] 08/03/25 07:00 08/03/25 07:15 08/03/25 08:34 Temperature 96.0 F L Pulse Rate 91 106 H Pulse Rate [Pulse Oximeter] 94 Respiratory Rate 12 Blood Pressure [R Arm] 145/80 H Pulse Oximetry 94 Oxygen Delivery Me thod Room Air 08/03/25 10:58 Temperature 98.5 F Pulse Rate Pulse Rate [Pulse Oximeter] 97 Respiratory Rate 12 Blood Pressure [R Arm] 124/64 Pulse Oximetry 94 Oxygen Delivery Me thod Room Air DS: Data Data Completed and Pending Labs on day of discharge: Labs from last 24 hours 08/03/25 08/02/25 08/02/25 06:25 23:04 13:10 WBC 5.38 RBC 3.78 L Hgb 11.4 L 11.9 L 11.2 L Hct 35.9 L MCV 95 MCH 30 MCHC 32 RDW Coeff of Ameena 15.0 Plt Count 233 Neut % (Auto) 70.9 Lymph % (Auto) 13.0 L Parker % (Auto) 11.3 H Eos % (Auto) 3.9 Baso % (Auto) 0.7 Neut # (Auto) 3.81 Lymph # (Auto) 0.70 L Parker # (Auto) 0.60 Eos # (Auto) 0.21 Baso # (Auto) 0.04 Abs Immat Gran (auto) 0.01 Imm/Tot Granulo (auto) 0.2 Sodium 136 Potassium 3.8 Chloride 104 Carbon Dioxide 30 Anion Gap 2 L BUN 13 Creatinine 0.7 Estimated Creat Clear 46.16 Estimated GFR 93 Glucose 96 Calcium 8.8 TSH Lab Acknowledgement 08/02/25 08/02/25 12:17 08:20 WBC RBC Hgb Hct MCV MCH MCHC RDW Coeff of Ameena Plt Count Neut % (Auto) Lymph % (Auto) Parker % (Auto) Eos % (Auto) Baso % (Auto) Neut # (Auto) Lymph # (Auto) Parker # (Auto) Eos # (Auto) Baso # (Auto) Abs Immat Gran (auto) Imm/Tot Granulo (auto) Sodium Potassium Chloride Carbon Dioxide Anion Gap BUN Creatinine Estimated Creat Clear Estimated GFR Glucose Calcium TSH 1.120 Lab Acknowledgement Test Added Discharge Plan Discharge Disposition: Home, Self-Care Date of Admission: 08/02/25 11:03 Attending Provider on Discharge: Adriana Tamez Consulting Providers: Beny Mcgowan Primary Care Provider: Gerardo Ferguson Condition: Improved Anticipated Discharge Date/Time: 08/03/25 11:08 Discharge Medications: New cephalexin 500 mg Capsule 500 mg PO TID Qty: 15 0RF Continued atorvastatin 40 mg tablet 40 mg PO HS leflunomide 20 mg tablet 20 mg PO DAILY furosemide 20 mg tablet 20 mg PO DAILY finasteride 5 mg tablet 5 mg PO DAILY melatonin 3 mg capsule 6 mg PO HS PRN loratadine [Claritin] 10 mg tablet 10 mg PO DAILY PRN flecainide 50 mg tablet 75 mg PO BID digoxin 125 mcg (0.125 mg) tablet 125 mcg PO DAILY Discontinued Eliquis 5 mg tablet 5 mg PO BID amoxicillin-pot clavulanate 875-125 mg tablet 1 tab PO BID Qty: 10 0RF Discharge Orders: Discharge Order (Routine); Ordered 08/03/25 Ordered By: Adriana Tamez Patient Education: Cephalexin (By mouth), Nosebleed (GEN) Additional Instructions: Discussed anticoagulation with [facility] Cardiology, recommending continue to hold anticoagulation (Eliquis) until bleeding has resolved - to be determined in follow-up with ENT. Take Keflex 3 times daily until follow-up with ENT on Tuesday 08/07 Activity Level: Activity as Tolerated and Light activity Discharge Diet: Regular Follow Up Appointments: Gerardo Ferguson MD [Primary Care Provider, Family Practice] Beny Mcgowan MD [Staff Physician, Ear, Nose, Throat] - 08/07/25 9:30 am Referral Note: [facility] for follow-up. Forms: Patient Belongings, [facility] Info Instructions
--- NOTE | 2025-08-03 12:51 | PC.NURSE ---
Discharge Note Pt was discharged at 1225pm, pt given education on updating medication regimen. pt is a/o x4 and pleasant. Verbalized understanding of instructions. Informed patient that balloon in nares to remain in until follow up with MD, given extra gauze for external dressing to change as needed. Pt pocket knife returned to him. Pt left building in wheelchair and was transported back home by Family friend.
== END 2025-08-03 12:25 | disposition home or self-care (01) ==
LOC: ED 09:29 → MEDSURG 11:04
PROVIDERS: Family Medicine; Admitting Provider Family Medicine; Emergency Provider Student in an Organized Health Care Education/Training Program; PCP Family Medicine; Visit Provider Family Medicine
DX: R04.0 Epistaxis (principal); I50.20 Unspecified systolic (congestive) heart failure; I48.91 Unspecified atrial fibrillation; E78.5 Hyperlipidemia, unspecified; Z79.01 Long term (current) use of anticoagulants; M06.9 Rheumatoid arthritis, unspecified; I48.92 Unspecified atrial flutter
CPT/HCPCS: 30901; 36415; 80048; 84443; 85018; 85025; 85610; 86850; 86900; 86901; 93005; 94761; 99283; 99284; 99285; A9270; G0378; J7030

== ENCOUNTER 2025-08-06 05:09 | Emergency (ER) | payer OTHER, SELFPAY ==
--- OUTSIDE RECORDS SUMMARY | 2025-08-06 05:12 | XMS_ITS ---
Author Organization [facility] Care Team Providers Care Oracle Hyperion Consultant Name Role Phone ^\\, ^\\ Unavailable Unavailable Brook Cottrell Unavailable Unavailable Jameson Stallings Unavailable Unavailable Allergies and adverse reactions Code CodeSystem Substance Reaction Severity StartDate Concern Status Venoms Unknown 11/29/2019 active Hymenoptera Unknown 11/29/2019 active GRASS POLLEN Unknown 11/29/2019 active Adhesive Tape Unknown 11/29/2019 active Care Team Name Role Address Phone Organization Dates Jameson Stallings [address], [place], [address], [place] (Office): [facility] 11/29/2019 - 12/11/2019 ^\\ ^\\ [place] [facility] 11/29/2019 - 12/11/2019 Brook Cottrell [address] [place] [address] , [place], [address], [place] (Office): : (Pager): [facility] 11/29/2019 - 12/11/2019 Immunizations Immunization Status Vaccine Details Vaccine Code CodeSystem Date Notes Influenza completed Influenza, high-dose, split virus, quadrivalent, injectable, preservative free 197 CVX created date: 11/30/2019 administere d date: 09/22/2019 Pneumovax Dose 1 completed pneumococcal polysaccharide vaccine, 23 valent 33 CVX created date: 11/30/2019 administere d date: 08/19/2012 TB 2 Step Mantoux Skin Test completed tuberculin skin test; unspecified formulation lotNumber: [id number] expiry: 01/30/2022 Mfg: [employer] Given 0.1 ml Left Forearm intradermally Step [...] ACUTE ON CHRONIC RIGHT HEART FAILURE 11/29/[address] active 2 BENIGN PROSTATIC HYPERPLASIA WITH LOWER URINARY TRACT SYMPTOMS 11/29/[address] active 3 BLINDNESS, ONE EYE, UNSPECIFIED EYE 11/29/[address] active 4 EDEMA, UNSPECIFIED 11/29/[address] active 5 ENCOUNTER FOR SURGICAL AFTERCARE FOLLOWING 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 11/29/[address] active 6 HYPERLIPIDEMIA, UNSPECIFIED 11/29/[address] active 7 INSOMNIA, UNSPECIFIED 11/29/[address] active 8 WIRE WELDER (CURRENT) USE OF ANTICOAGULANTS 11/29/[address] active 9 MALE ERECTILE DYSFUNCTION, UNSPECIFIED 11/29/[address] active 10 MICROSCOPIC COLITIS, UNSPECIFIED 11/29/[address] active 11 OTHER INTERVERTEBRAL DISC DISPLACEMENT, LUMBAR REGION 11/29/[address] active 12 OTHER OBSTRUCTIVE AND REFLUX UROPATHY 11/29/[address] active 13 OTHER SPECIFIED POSTPROCEDURAL STATES 11/29/[address] active 14 PERSONAL HISTORY OF TRANSIENT ISCHEMIC ATTACK (TIA), AND CEREBRAL INFARCTION WITHOUT RESIDUAL DEFICITS 11/29/[address] active 15 RASH AND OTHER NONSPECIFIC SKIN ERUPTION 11/29/[address] active 16 RETENTION OF URINE, UNSPECIFIED 11/29/[address] active 17 RHEUMATIC TRICUSPID INSUFFICIENCY 11/29/[address] active 18 UNSPECIFIED ATRIAL FIBRILLATION 11/29/[address] active 19 UNSPECIFIED ATRIAL FLUTTER 11/29/[address] active 20 UNSPECIFIED HEARING LOSS, UNSPECIFIED EAR 11/29/[address] active Reason for Referral No Reasons for Referral Entered Social History Social History Observation Description Start Date End Date Code Code System Current Smoking Status Tobacco smoking consumption unknown 592287402 SNOMED CT Sex Assigned At Male 1945 92150-4 [facility] Gender Identity Sexual Orientation Vital Signs Code Code System Vitals Name Values and Units Timing Information 9279-1 [facility] Respiratory Rate Value=18.0 Units=/m in 12/11/2019 8462-4 [facility] Blood Pressure-Diastolic Value=65 Un its=mmHg 12/11/2019 8480-6 [facility] Blood Pressure-Systolic Ynhcp=059 Un its=mmHg 12/11/2019 8310-5 [facility] Body Temperature Value=98.1 Units= F 12/11/2019 8867-4 [facility] Heart rate Value=84.0 Units=/min 01/2020 14694-2 [facility] O2 % BldC Oximetry Value=98.0 Units= % 12/11/2019 76714-4 [facility] Pain Level Value=0.0 12/11/2019 46027-3 [facility] Weight Dpjuo=833.4 Units=Lbs 01/2020 8302-2 [facility] Height Value=67.0 Units=Inches 11/29/2019
--- OUTSIDE RECORDS SUMMARY | 2025-08-06 05:12 | XMS_ITS | Clinical Summary ---
Author Organization [facility] Address [address] [place] [address] Care Team Providers Care Margin Trimmer Name Role Phone Gerardo Ferguson MD Primary Care Provider [phone] Trista Alba Unavailable [phone] Faizan Mendez MD Unavailable [phone] Allergies Active Allergy Reactions Criticality Noted Date Comments Adhesive Tape-Silicones Irritation At Patch Site 11/16/2019 Surgical tape sensitivity Amiodarone Rash High 11/24/2019 Started Amiodarone in 09/2019. Developed severe rash, low mood, bradycardia. Beta-Blockers (Beta-Adrenergic Blocking Agts) Nightmares 04/14/2021 [place] disconnected, nightmares, bloating Grass Pollen *Unknown 06/10/2018 [...] Encounters Date Type Department Care Team Description 08/03/[address] [facility] [address] [place] [address] Bayron Jacobsen MD Appointment 07/16/[address] [facility] [address] [facility] [address] [place] [address] Bayron Jacobsen MD Medication Management 07/14/2025 Refill [facility] [address] [place] [address] Faizan Mendez MD Refill Request (Leflunomide) 07/03/2025 Telephone [facility] [address] [place] [address] Ariane Euceda RN EP follow-up 06/28/[address] [facility] [address] [place] [phone] Audra Wing NP pacemaker plan of care 06/27/2025 Orders Only [facility] [address] [place] [address] Nichelle Pan R.T. (ARRT) 1 scan: (1-Ord) NFLD-EKG-06/25/2025 06/25/2025 3:45 PM CDT Nurse/Clinic Staff Only [facility] [address] [place] [address] Cardiovascular Diagnostic Testing (EKG ) 06/25/2025 Orders Only [facility] Scanner 1 scan: (1-Ord) 06/25/2025 06/25/[address] [facility] [address] [place] [address] [place] [phone] Bayron Jacobsen MD Results (EKG) 06/25/2025 Travel 06/22/[address] [facility] [address] [place] [address] [place] [address] Bayron Jacobsen MD Questions 06/20/2025 2:12 PM CDT Anesthesia Event [facility] [address], [place] [address] Rosita El MD Glogowski, James Matthew, BERHANE 06/20/2025 12:33 PM CDT - 06/20/2025 4:25 PM CDT Hospital Encounter [facility] [address], [place] [address] Magui Tyler MD Glogowski, James Matthew, CRNA Anderson, Rebecca Faye, MD Persistent atrial fibrillation (HC) (Primary Dx) Discharge Disposition: Home Self Care 06/20/2025 Travel 06/18/2025 2:00 PM CDT Office Visit [facility] [address] [facility] [address] [place] [address] Magui Tyler MD Follow Up (C5 SLOT PER [address] TONG FOR AFIB RVR/Maternal side strokes and CAD //Pt states his HR has been elevated for several months. Pt denies chest pain/discomfort) 06/18/2025 Travel 06/13/2025 3:15 PM CDT Office Visit [facility] [place] [address] Gerardo Ferguson MD Follow Up (Patient concerned with lab results/Pro-BNP/AST); Heart Problem (H/O heart failure - noticing issues with elevated heart rate - 110-120s/Cardiology follow up scheduled 09/11/2025) 06/13/2025 Travel 06/12/2025 Telephone [facility] [address] Gerardo Ferguson MD Appointment (lab results ) 06/11/2025 1:45 PM CDT Orders Only [facility] [facility] [address] [place], [place] Lab 06/11/2025 Travel 05/15/2025 Refill [facility] [address] [place] [address] Gerardo Ferguson MD Refill Request (Furosemide 20mg ) from Last 3 Months Immunizations Immunization Administration Dates Next Due COVID-19 vaccine (Absio-Bio NTech 30mcg/0.3mL) 12YO+ BIVALENT PF, MDV 11/12/2022 COVID-19 vaccine (Pfizer-Bio NTech 30mcg/0.3mL) PF, MDV 08/09/2023,08/18/2021,01/18/2021,12/28 Influenza, High-dose [...] on file Legal Sex Male 4:00 PM PRODUCTION MECHANIC Gender Identity Not on file Sexual Orientation Not on file Occupation Industry Job Start Date Job End Date Retired [email or web address] Not on file Not on file [...] Info) Description 08/15/2025 1:00 PM CDT Appointment [facility] [address] [place] [address] Bayron Jacobsen MD [address] [place] [address] 09/11/2025 11:00 AM PRODUCTION MECHANIC Office Visit [facility] [address] [facility] [address] [place] [phone] Bayron Jacobsen MD [address] [place] [address] 09/17/2025 1:40 PM PRODUCTION MECHANIC Office Visit [facility] [address] [place] [address] Faizan Mendez MD [address] [place] [address] 09/24/2025 12:45 PM PRODUCTION MECHANIC Orders Only [facility] [address] [place] [address] [place], [place] 09/26/2025 1:10 PM PRODUCTION MECHANIC Office Visit [facility] [address] [place] [address] Gerardo Ferguson MD [address] [place] [address] Health Maintenance Due Date Last Done Comments COVID-19 vaccine series (7 - Pfizer risk season) 2025 10/10/2024, 08/09/2023, 11/12/2022, Additional history [...] failure) (HC) Atrial fibrillation with RVR (HC) NE READING EKG - NO CHARGE, COMP ONLY [...] time period is included. us Audra Wing TAPPER OPERATOR EKG ORD Final Re sult * SCAN-ELECTROCARDIOGRAM EKG (06/25/2025 12:00 AM CDT) us Scanner OTHER Final Result * EP CARDIOVERSION (06/20/2025 2:20 PM CDT) Anatomical Region Laterality Modality X-Ray Angiograph y Narrative 06/20/2025 2:20 PM CDT Adalid Ren MD 06/25/2025 8:56 AM [facility] Cardiac Electrophysiology Procedure Note DOS: 06/20/2025 Brief History: Dejan Hernández is a pleasant 80 y.o. year old with history of recurrent atrial fibrillation with complex ablation and cardioversion history who now presents to OP NPO since midnight for direct current cardioversion. [...] evaluation for arrhythmia management and document in TAPPER OPERATOR [facility] H&P. Dr Ren supervised and was readily available to provide assistance and direction throughout the time services were performed VINH Sanz [facility] Cardiac Electrophysiology Adalid Ren MD Cardiac Arrhythmia Section [facility] us Magui Tyler MD CV IMAGING Final Result * ISTAT CHEM 8 (06/20/2025 1:57 PM CDT) Pathologist [facility] SODIUM, POCT 06/21/2025 4:28 AM CDT [facility] Comment:Unable to determine. POTASSIUM, POCT 4.1 3.5 - 5.0 mmol/L 06/21/2025 4:28 AM CDT [facility] CHLORIDE, POCT 06/21/2025 4:28 AM CDT [facility] Comment:Unable to determine. CO2,TOTAL, POCT 06/21/2025 4:28 AM CDT [facility] Comment:Unable to determine. ANION GAP, POCT 06/21/2025 4:28 AM CDT [facility] Comment:Unable to calculate. GLUCOSE, POCT 06/21/2025 4:28 AM CDT [facility] Comment:Unable to determine. IONIZED CALCIUM, POCT 06/21/2025 4:28 AM CDT [facility] Comment:Unable to determine. BUN, POCT 06/21/2025 4:28 AM CDT [facility] Comment:Unable to determine. CREATININE, POCT 06/21/2025 4:28 AM CDT [facility] Comment:Unable to determine. BUN/CREAT RATIO, POCT 06/21/2025 4:28 AM CDT [facility] Comment:Unable to calculate. eGFR 06/21/2025 4:28 AM CDT [facility] Comment:Unable to calculate. HEMATOCRIT, POCT 06/21/2025 4:28 AM CDT [facility] Comment:Unable to determine. HEMOGLOBIN, POCT 06/21/2025 4:28 AM CDT [facility] Comment:Unable to determine. Blood BLOOD SPECIMEN / Unknown 06/20/2025 1:57 PM CDT 06/21/2025 4:28 AM CDT us Magui Tyler MD CHEMISTRY Final Result [facility] [address] [place] [address], [place] * SCAN-CARDIAC STRIP (06/20/2025 12:00 AM CDT) Narrative 06/20/2025 12:00 AM CDT Ordered by an unspecified provider. Other Clinical Staff OTHER Final Resul t * NE READING EKG - NO CHARGE, COMP ONLY (06/19/2025 9:27 AM CDT) us Gerardo eFrguson MD PB - PROVIDER READINGS Fin al Result * (ABNORMAL) CBC AND DIFFERENTIAL (06/11/2025 1:59 PM CDT) Pathologist [facility] WHITE BLOOD CELL COUNT 5.0 3.8 - 10.8 Thousand/u L [facility] RED BLOOD CELL COUNT 3.87(L) 4.20 - [...] HEMATOLOGY Final Resul t Performing Organization Address City/[facility] Co de Phone Number [facility] [address] [address], [place] [phone] [facility] [address] [place] [phone] * ALT (SGPT) (06/11/2025 1:59 PM CDT) ALT 32 9 - 46 U/L [facility] Blood BLOOD SPECIMEN / Unknown 06/11/2025 1:59 PM CDT 06/11/2025 1:59 PM CDT us Faizan Mendez MD CHEMISTRY Final Resul t Performing Organization Address [facility] Co de Phone Number [employer] [address] [address], [place] [phone] [facility] [address] [place] [phone] * (ABNORMAL) AST (SGOT) (06/11/2025 1:59 PM CDT) AST 53(H) 10 - 35 U/L [facility] Blood BLOOD SPECIMEN / Unknown 06/11/2025 1:59 PM CDT 06/11/2025 1:59 PM CDT us Faizan Mendez MD CHEMISTRY Final Resul t Performing Organization Address City/[facility]/ZIP Co de Phone Number [facility] [employer] [address] [place] [address], [place] [phone] [facility] [address] [place] [address] * (ABNORMAL) PRO-BNP (06/11/2025 1:39 PM CDT) Pathologist [facility] NT PROBNP 3,001(H) <450 pg/mL [facility] Blood BLOOD SPECIMEN / Unknown 06/11/2025 1:39 PM CDT 06/11/2025 1:40 PM CDT us Gerardo Ferguson MD SEND OUTS Final Resu lt [facility] [address] [place] [address], [facility] [address] [place] [address] * BASIC METABOLIC PANEL (06/11/2025 1:39 PM CDT) [facility] GLUCOSE 96 65 - 99 mg/dL [facility] [...] MD CHEMISTRY Final Resu lt [facility] [address] [place] [address], [facility] [address] [place] [address] from Last 3 Months Insurance MEDICARE PART A HB [place] [id number] Advance Directives * Full Code (Latest Code [...] 4:51 PM 01/06/2020 6:28 PM Care Teams Margin Trimmer Relationship Specialty Start Date End Date Gerardo Ferguson MD [address] [place] [address] PCP - General Family Practice 01/06/13 Trista Alba AuD [address] [place] [address] Audiology 03/01/13 Faizan Mendez MD [address] [facility] [address] [place] [address] Rheumatology Rheumatology 06/03/20
--- OUTSIDE RECORDS SUMMARY | 2025-08-06 05:12 | XMS_ITS | Data Portability ---
Author Organization [place] [facility] [place] [facility], [facility] Address [address] [place] [address] Care Team Providers Care Assistance Representative Name Role Phone GATO JUDGE Primary Care Provider Assessment Encounter Date Assessment Date Assessment LastModified [...] developed gross hematuria and lower abdominal discomfort. [email or web address] Not available 06/30/2024 14:53:21 Plan of Treatment Reminders Order Date Submit Date Provider Last Modified By Organization Details Last Modified Time Details Appointments None recorded . Lab testoste dionne, total, serum - Needed October 20232022 023 [facility], [address] [place], [address], 3 14:10:50 shbg (sex hormone- binding globulin ), serum - Needed October 20232022 023 [facility], [address] [place], [address], 3 13:46:44 lh (luteini zing hormone) , serum - Needed October 20232022 023 [email or web address] [facility], [address] [place], [address], 3 08:39:28 urinalys is, dipstick 2020 021 Not available 1 11:44:52 Referral None recorded . Procedures None recorded . Surgeries None recorded . Imaging CT, abdomen + pelvis, w/wo contrast 2020 021 [email or web address] Not available 1 12:49:02 Medication Orders cabergol ine 0.5 mg tablet 2023 024 [email or web address] [facility], [address] [place] [address], [address], 4 15:04:06 cabergol ine 0.5 mg tablet 2022 023 [facility], [address] [place] [address], [address], 3 17:32:50 Patient TargetsNo targets recorded. Patient InstructionsNo instructions recorded. Reason for Referral None Reported. Results Created Date Observation Date Name Description Value Unit Range Abnormal Flag Note LastModifiedBy Organization Detail LastModifiedTime 04/28/20 21 04/28/2021 urina lysis , dipst ick Color-Status Yellow Not Available [facility] [address], [place], [address], 04/28/2021 11:43:44 04/28/20 21 04/28/2021 urina lysis , dipst ick Clarity-Stat us Clear Not Available [facility] [address], [place], [address], 04/28/2021 11:43:44 04/28/20 21 04/28/2021 urina lysis , dipst ick Glucose-Stat us Negati ve Not Available [facility] [address], [place], [address], 04/28/2021 11:43:44 04/28/20 21 04/28/2021 urina lysis , dipst ick Bilirubin-St atus Negati ve Not Available [facility] [address], [place], [address], 04/28/2021 11:43:44 04/28/20 21 04/28/2021 urina lysis , dipst ick Ketones-Stat us Negati ve Not Available [facility] [address], [place], [address], 04/28/2021 11:43:44 04/28/20 21 04/28/2021 urina lysis , dipst ick Sp [place]-Stat us 1.010 Not Available [facility] [address], [place], [address], 04/28/2021 11:43:44 04/28/20 21 04/28/2021 urina lysis , dipst ick pH-Status 5.5 Not Available [facility] [address], [place], [address], 04/28/2021 11:43:44 04/28/20 21 04/28/2021 urina lysis , dipst ick Urobilinogen -Status 0.2 Not Available [facility] [address], [place], [address], 04/28/2021 11:43:44 04/28/20 21 04/28/2021 urina lysis , dipst ick Nitrates-Sta tus negati ve Not Available [facility] [address], [place], [address], 04/28/2021 11:43:44 04/28/20 21 04/28/2021 urina lysis , dipst ick Blood-Status Large Not Available [facility] [address], [place], [address], 04/28/2021 11:43:44 04/28/20 21 04/28/2021 urina lysis , dipst ick Leuko-Status Large Not Available [facility] [address], [place], [address], 04/28/2021 11:43:44 04/28/20 21 04/28/2021 urina lysis , dipst ick Specimen Type Voided Not Available [facility] [address], [place], [address], 04/28/2021 11:43:44 05/01/2004/28/2021 bladd er scan (PROC ) No observ ation record ed. [email or web address] Not Available 2021 12:27:51 05/01/2004/30/2021 CT, abdom en + pelvi s, w/wo contr ast No observ ation record ed. [email or web address] [facility] [address], [place], [address], 10/15/2022 12:27:51 05/02/2028 0404/30/2021 CT, abdom en [...] Time 025 Bladder Scan cancelled Rosita Cruz [facility] 04/16/2025 09:04:25 024 COMPLEX VISIT completed Mir Michel MD [address] [place] [address],[address], [place], [address], [facility] 07/05/2024 17:45:59 024 Bladder Scan completed Rosita Cruz [facility] 07/05/2024 14:51:18 023 Bladder Scan completed Rosita Pavon [facility] 10/14/2023 14:25:04 023 Bladder Scan completed Faye Nicolasa [facility] 04/15/2023 14:35:56 022 Bladder Scan completed Chintan Oden [facility] 10/15/2022 11:52:20 021 Bladder Scan completed Jaleesa Yost [facility] 04/28/2021 11:49:09 procedure on heart completed Anastacio Yost [facility] 04/28/2021 11:54:07 Cholecystectomy completed Jaleesa Yost [facility] 04/28/2021 11:59:49 Hernia Repair completed aJleesa Yost [facility] 04/28/2021 11:59:55 Imaging Results None recorded. Procedure Notes None recorded. Medical Equipment None Reported. Allergies Allergen ID Allergen Name Allergen Category Reaction Reaction Severity Criticality Documentation Date Start Date Code Code System Note Provider Name and Address Organization Details Recorded Time 175072 hydroxych loroquine medicatio n rash Not available Not available 04/28/2021 5521 RxNorm Jaleesa almazan, [facility] 11:53:05 226490 grass pollen environme nt,medica tion Not available Not available Not available 04/28/2021 Jaleesa almazan, [facility] 11:53:12 034377 wasp venoms environme nt Not available Not available Not available 04/28/2021 65622 RxNorm Jaleesa almazan, [facility] 11:53:18 727970 amiodaron e medicatio n rash Not available Not available 04/28/2021 703 RxNorm Jaleesa almazan, [facility] 11:53:42 Medications Name Sig Start [...] Updated DateTime 04/15/2023 172.72 cm 19.8 kg/m2 85835.01 g Faye Baldwin [facility] 04/15/2023 14:32:08 Date Recorded Body height Body mass index (BMI) Body weight Provider Name and Address Organization Details Last Updated DateTime 04/28/2021 172.72 cm 21 kg/m2 16045.75 g Jaleesa Yost [facility] 04/28/2021 11:50:58 Date Recorded Body height Body mass index (BMI) Body weight Provider Name and Address Organization Details Last Updated DateTime 07/05/2024 172.72 cm 19.8 kg/m2 75789.01 g Rosita Cruz [facility] 07/05/2024 14:50:36 Date Recorded Body height Body mass index (BMI) Body weight Provider Name and Address Organization Details Last Updated DateTime 10/14/2023 172.72 cm 19.8 kg/m2 09059.01 g Rosita Pavon [facility] 10/14/2023 14:25:33 Date Recorded Body height Body mass index (BMI) Body weight Provider Name and Address Organization Details Last Updated DateTime 10/15/2022 172.72 cm 19.8 kg/m2 60011.01 g Chintan Oden [facility] 10/15/2022 11:48:18 Social History Question Answer Notes LastModified by Organizat ion Details LastModified Time Tobacco Smoking Status Never Smoker Jaleesa Yost [facility] 04/28/2021 11:58:26 What Is Your Level Of Caffeine Consumption? Occasional Information not available 04/28/2021 How Much Tobacco Do You Chew? None Information not available 04/28/2021 Recreational Drug Use No Information not available 04/28/2021 Could You Be ? No Information not available 04/28/2021 Marital Status Informatio n not available 04/28/2021 What Was The Date Of Your Most Recent Tobacco Screening? 07/05/2024 [email or web address] Information not available 07/05/2024 What Is Your Relationship Status? Information not available 10/15/2022 Has Tobacco Cessation Counseling Been Provided? No Information not available 10/15/2022 Sex: Unknown Functional Status Question Answer Note LastModified by Organizat ion Details LastModified Time Do you use any illicit or recreational drugs? No [email or web address] Information not available 04/15/2023 What is your level of alcohol consumption? None Information not available 04/28/2021 Do you or have you ever used smokeless tobacco? Never used smokeless tobacco Information not available 04/28/2021 Are you currently employed? 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 Information not available 2021 Do you or [...] available 04/28 11:58:15 Medical History Condition Response Other Y High Blood Pressure N Kidney Stones N Depression N Sexually Transmitted Infection N Cancer N Bleeding Disorder N Lung Disease N GERD/Acid Reflux N High Cholesterol N Diabetes N Heart Disease Y Immunizations Vaccine Type Date Status Note Provider Nam e and Address Organization Details Recorded Time Influenza, adjuvanted, quadrivalent, PF 3 completed Rosita almazan, [facility] 10/14/2023 14:23:32 COVID-19, mRNA, LNP-S, PF, 30 mcg/0.3 mL dose 3 completed Rosita almazan, [facility] 10/14/2023 14:23:32 RSV, recombinant, protein subunit RSVpreF, adjuvant reconstituted, 0.5 mL, PF 3 completed Rosita Pavon null, [facility] 10/14/2023 14:23:32 COVID-19, mRNA, LNP-S, PF, 30 mcg/0.3 mL dose 1 completed Faye March null, [facility] 04/15/2023 14:32:29 COVID-19, mRNA, LNP-S, PF, 30 mcg/0.3 mL dose 1 completed Fayemarch null, [facility] 04/15/2023 14:32:29 COVID-19, mRNA, LNP-S, PF, 30 mcg/0.3 mL dose 1 completed Fayemarch null, [facility] 04/15/2023 14:32:29 pneumococcal polysaccharide PPV23 0 completed Fayemarch null, [facility] 04/15/2023 14:32:29 pneumococcal polysaccharide PPV23 2 completed March null, [facility] 04/15/2023 14:32:29 Influenza, adjuvanted, trivalent, PF 9 completed Bernie Banksjere null, [facility] 09/09/2023 14:43:01 zoster recombinant 9 completed Bernie Enriquetare null, [facility] 09/09/2023 14:43:01 zoster recombinant 9 completed Bernie Robisonre null, [facility] 09/09/2023 14:43:01 Influenza, high-dose, quadrivalent, PF 2 completed Bernie Almejere null, [facility] 09/09/2023 14:43:01 Influenza, adjuvanted, quadrivalent, PF 1 completed Bernie Robisonre null, [facility] 09/09/2023 14:43:01 COVID-19, mRNA, LNP-S, bivalent, PF, 30 mcg/0.3 mL dose 3 completed Bernie Magañaejere null, [facility] 09/09/2023 14:43:01 Tdap 2 completed Bernie Almejere null, [facility] 09/09/2023 14:43:01 Tdap 2 completed Bernie Almejere null, [facility] 09/09/2023 14:43:01 Tdap 2 completed Bernie Almejere null, [facility] 09/09/2023 14:43:01 Pneumococcal conjugate PCV 13 5 completed Bernie Almejere null, [facility] 09/09/2023 14:43:01 zoster live 2 completed Bernie Almejere null, [facility] 09/09/2023 14:43:01 zoster live 2 completed Bernie Almejere null, [facility] 09/09/2023 14:43:01 Influenza, high-dose, trivalent, PF 0 completed Bernie Almejere null, [facility] 09/09/2023 14:43:01 Influenza, high-dose, trivalent, PF 7 completed Bernie Almejere null, [facility] 09/09/2023 14:43:01 Influenza, high-dose, trivalent, PF 8 completed Bernie Almejere null, [facility] 09/09/2023 14:43:01 Influenza, high-dose, trivalent, PF 5 completed Bernie Almejere null, [facility] 09/09/2023 14:43:01 Influenza, high-dose, trivalent, PF 6 completed Bernie Almejere null, [facility] 09/09/2023 14:43:01 Influenza, split virus, trivalent, preservative 2 completed Bernie Almejere null, [facility] 09/09/2023 14:43:01 Influenza, split virus, trivalent, preservative 3 completed Bernie Almejere null, [facility] 09/09/2023 14:43:01 Influenza, split virus, trivalent, preservative 2 completed Bernie Almejere norah, [facility] 09/09/2023 14:43:01 Influenza, split virus, trivalent, PF 0 completed Bernie Robisonjonny norah, [facility] 09/09/2023 14:43:01 Influenza, split virus, trivalent, PF 6 completed Bernie Robisonjonny norah, [facility] 09/09/2023 14:43:01 Td (adult), 2 Lf tetanus toxoid, preservative free, adsorbed 5 completed Bernie Robisonjonny norah, [facility] 09/09/2023 14:43:02 Past Encounters Encounter ID Performer Location Encounter Start Date Encounter Closed Date Diagnosis/Indication Diagnosis SNOMED-CT Code Diagnosis ICD10 Code Diagnosis IMO Codes Diagnosis Note [id number] MD JHONATAN [facility] [address] [place] [address] 04/28/2021 11:29:57 04/30/2021 09:40:17 Lower urinary tract symptoms due to benign prostatic hypertrophy 5015021745 9101 N40.1 - S/P Greenlight PVP- PVR today 98mL- From a voiding prespectiv e he states that he is doing well. Tutu hematuria 05742106 5 R31.0 - As his bladder was evaluated at time of his greenlight PVP, the likelihood of any identifiab le pathology today is small. We discussed the benefit/ri sk assessment of proceeding with cystoscopy today.- Will obtain CT Urogram to evaluate for upper tract pathology, possible stone given left flank pain. Primary er ectile dysfunction 953262320 N52.9 - Sildenafil has provided benefit but not suitable for penetratio n. We discussed role of ICI and he is interested in trying it. We did discuss risk of priapism, so will start at low dose. [id number] MD JHONATAN [facility] [address] [place] [address] 10/15/2022 11:29:49 10/21/2022 08:47:03 Lower urinary tract symptoms due to benign prostatic hypertrophy 7031041115 9101 N40.1 - S/P Greenlight PVP- PVR today 57 mL- From a voiding perspectiv e he states that he is doing well. Tutu hematuria 02788753 5 R31.0 - CT Urogram without pathology- Mostly likely from his history of prostate procedure and continued use of anticoagul ation Primary er ectile dysfunction 369729135 N52.9 - doing well with ICI [id number] Mir Michel MD [facility] [employer] [facility] [place] [id number] 04/15/2023 14:25:26 04/20/2023 13:48:32 Lower urinary tract symptoms due to benign prostatic hypertrophy 3560619767 9101 N40.1 - S/P Greenlight PVP- PVR today 0 mL- AUASS: 8- From a voiding perspectiv e he states that he is doing well. Tutu hematuria 99230051 5 R31.0 - CT Urogram without pathology- Mostly likely from his history of prostate procedure and continued use of anticoagul ation Primary er ectile dysfunction 414506237 N52.9 - doing well with ICI Reduced libido 6892458 R 68.82 - Will check hormone panel [id number] Mir Michel MD [facility] [employer] [facility] [place] [id number] 10/14/2023 14:15:38 10/22/2023 11:35:22 Lower urinary tract symptoms due to benign prostatic hypertrophy 5502086401 9101 N40.1 - S/P Greenlight PVP- PVR 44 mL- AUASS: 8 --> 8 (2)- From a voiding perspectiv e he states that he is doing well. Tutu hematuria 46341720 5 R31.0 - CT Urogram without pathology- Mostly likely from his history of prostate procedure and continued use of anticoagul ation Primary er ectile dysfunction 232416248 N52.9 - doing well with ICI Reduced libido 9912117 R 68.82 - Hormone panel normal-Christopher l trial cabergolin e [id number] Mir Michel MD [facility] [employer] [facility] [place] [id number] 07/05/2024 14:40:50 07/12/2024 09:26:45 Lower urinary tract symptoms due to benign prostatic hypertrophy 8026542338 9101 N40.1 - S/P Greenlight PVP- PVR 44 mL --> 67 mL- AUASS: 8 --> 8 (2) --> 5 (2)- From a voiding perspectiv e he states that he is doing well. Tutu hematuria 74692438 5 R31.0 - CT Urogram without pathology- Mostly likely from his history of prostate procedure and continued use of anticoagul ation Primary er ectile dysfunction 868714466 N52.9 - doing well with ICI Reduced libido 4208081 R 68.82 - Hormone panel normal-Christopher l trial cabergolin e Health Concerns Section Related Observation LastModified by Organization Detai ls LastModified Time None Recorded Concern Status LastModified by Organization Details LastModified Time None Recorded Advance Directives Directive None Recorded Payers Insurance Date Sequence Insurance Name Policy Number Policy Stanton Covered Member ID Stanton Member ID Guarantor Name 04/11/2025 1 [employer] Dejan Salmeronood [id number] Dejan Rao Hernández 04/15/2023 3 [place] [employer] Dejan H Hernández [id number] Dejan H Hernández 04/15/2023 2 [employer] - PLAN C (MEDICARE SUPPLEMENT) Dejan H Hernández [id number] Dejan H Hernández 04/11/2025 1 [employer] (MEDICARE REPLACEMENT/ADVA NTAGE - PPO) [id number] Dejan Rao Hernández [id number] Dejan H Hernández 04/15/2023 3 [place] [employer] Dejan H Hernández [id number] Dejan H Hernández 04/15/2023 1 [place] [employer] Dejan H Hernández [id number] Dejan H Hernández 04/30/2023 2 [employer] - OPEN ACCESS CHOICE (HMO) [id number] Dejan H Hernández [id number] Dejan H Hernández Notes Date Note Type Note Provider Name and Address Organization Details Recorded Time 04/28/2021 text/html Mr. Hernández is a 75 year old male who follows with me in my [place] [facility] for history of urinary retention (now [...] efficacy of on-demand dosing. Mir Michel MD [address] [place] [address],[address], [address], [facility] 04/28/2021 14:38:00 10/15/2022 text/html Mr. Hernández is a 77 year old male who follows with me in my [place] [facility] for history of urinary retention (now [...] Currently urine is clear. Mir Michel MD [address] [place] [address],[address], [place], [address], [facility] 10/15/2022 12:29:23 04/15/2023 text/html Mr. Hernández is a 77 year old male who follows with me in my [place] [facility] for history of urinary retention (now [...] off a andrea. Mir Michel MD [address] [facility],[address], [place], [address], [facility] 04/15/2023 17:54:58 10/14/2023 text/html Mr. Hernández is a 78 year old male who follows with me in my [place] [facility] for history of urinary retention (now [...] Overall doing well. Mir Michel MD [address] [facility],[address], [place], [address], [facility] 10/14/2023 17:32:59 07/05/2024 text/html Mr. Hernández is a 79 year old male who follows with me in my [place] [facility] for history of urinary retention (now [...] it another go. Mir Michel MD [address] [facility],[address], [place], [address], [facility] 07/05/2024 17:46:56
[2025-08-06 05:16] VITALS: BP 146/63; PULSE 75; RESP 19; TEMP 36.7; O2SAT 97; BMI 19.6
--- NOTE | 2025-08-06 05:57 | ED.GENADULT ---
HPI - General Adult General Chief complaint: Epistaxis/Nosebleed Stated complaint: uncontrollable bloody nose Time Seen by Provider: 08/06/25 05:35 Source: patient Mode of arrival: ambulatory Limitations: no limitations History of Present Illness HPI narrative: 80-year-old male presents to the emergency department with nosebleed. He had a nose bleed and was evaluated in the emergency department 4 days ago. Was told it was a posterior nosebleed. Review of the chart shows that he was watched on med surge overnight after balloon packing was placed as well as TXA soaked gauze. Ultimately, balloon was able to be removed. Patient is scheduled to be seen in the clinic with Dr. Mcgowan tomorrow. He stopped his Eliquis 3 days ago. Bleeding started about an hour ago. Clots coming down the back of the throat. No vomiting. No new trauma or injury. Blood counts reviewed. No thrombocytopenia. No hypotension noted in triage. Patient did not try any interventions at home prior to coming to ED, was told to come in by Dr. Mcgowan if bleeding restarted. Past medical history is most notable for AFib and heart failure. Typically takes Eliquis but currently on hold. Also takes atorvastatin, digoxin, flecainide, furosemide leflunomide. Was on Keflex while packing was in place, has completed. Nonsmoker. ROS is notable for the ENT symptoms only, otherwise no other HEENT, hematological, GI or generalized or respiratory changes. Related Data Home Medications ?Medication ?Instructions ?Recorded ?Confirmed atorvastatin 40 mg tablet 40 mg PO HS 12/18/22 08/06/25 leflunomide 20 mg tablet 20 mg PO DAILY 12/18/22 08/06/25 digoxin 125 mcg (0.125 mg) tablet 125 mcg PO DAILY 08/02/25 08/06/25 finasteride 5 mg tablet 5 mg PO DAILY 08/02/25 08/06/25 flecainide 50 mg tablet 75 mg PO BID 08/02/25 08/06/25 furosemide 20 mg tablet 20 mg PO DAILY 08/02/25 08/06/25 loratadine 10 mg tablet (Claritin) 10 mg PO DAILY PRN 08/02/25 08/06/25 melatonin 3 mg capsule 6 mg PO HS PRN 08/02/25 08/06/25 apixaban 5 mg tablet (Eliquis) 5 mg PO BID 08/06/25 08/06/25 Previous Rx's ?Medication ?Instructions ?Recorded cephalexin 500 mg capsule 500 mg PO TID #15 caps 08/03/25 Allergies Allergy/AdvReac Type Severity Reaction Status Date / Time amiodarone Allergy Mild Verified 08/06/25 05:24 hydroxychloroquine Allergy Mild Swelling/Ra Verified 08/06/25 05:24 sh sotalol Allergy Mild Rash Verified 08/06/25 05:24 adhesive tape Allergy Unknown Verified 08/06/25 05:24 grass pollen Allergy Unknown Verified 08/06/25 05:24 silicone Allergy Unknown Verified 08/06/25 05:24 venom-wasp Allergy Unknown Verified 08/06/25 05:24 yellow jacket venom Allergy Mild Uncoded 12/18/22 18:34 PFSH PFS Medical History BPH w urinary obs/LUTS ?N40.1 - Benign prostatic hyperplasia with lower urinary tract symptoms (ICD-10) ?N13.8 - Other obstructive and reflux uropathy (ICD-10) Atrial fibrillation and flutter ?I48.91 - Unspecified atrial fibrillation (ICD-10) ?I48.92 - Unspecified atrial flutter (ICD-10) Rheumatoid arthritis ?M06.9 - Rheumatoid arthritis, unspecified (ICD-10) Left acute arterial ischemic stroke, MCA (middle cerebral artery) ?I63.512 - Cerebral infarction due to unspecified occlusion or stenosis of left middle cerebral artery (ICD-10) Lymphocytic colitis ?K52.832 - Lymphocytic colitis (ICD-10) Hyperlipidemia ?E78.5 - Hyperlipidemia, unspecified (ICD-10) HFrEF (heart failure with reduced ejection fraction) ?I50.20 - Unspecified systolic (congestive) heart failure (ICD-10) Lower extremity edema ?R60.0 - Localized edema (ICD-10) Surgical History History of prostate surgery ?Z98.890 - Other specified postprocedural states (ICD-10) H/O cardiac radiofrequency ablation ?Z98.890 - Other specified postprocedural states (ICD-10) Hx laparoscopic cholecystectomy ?Z90.49 - Acquired absence of other specified parts of digestive tract (ICD-10) H/O hernia repair ?Z98.890 - Other specified postprocedural states (ICD-10) ?Z87.19 - Personal history of other diseases of the digestive system (ICD-10) Social History What is your current living situation?: I presently have a place to live Problems where you live: no known problems Problems where you live details: N/A In the past 12 months, utilities in danger of being shut off: no In past 12 months, lack of transportation kept you from medical appts, meetings, work, or getting things needed for daily living: no In the past 12 mos, have been you worried that your food would run out before you had money to buy more?: never true In the past 12 mos, the food you bought just didn't last and you didn't have money to buy more?: never true Highest level of school completed/degree received: Master's degree Smoking Status: Never smoker Do you use any of these nicotine containing products: None How often do you have a drink containing alcohol: monthly or less Alcohol type: beer How often do you have six or more drinks on one occasion: Never AUDIT-C Alcohol total score: 1 Non-prescribed substance use: denies use How often does anyone, including family, friends and others, physically hurt you: never How often does anyone, including family, friends and others, insult or talk down to you: never How often does anyone, including family, friends and others, threaten you with harm: never How often does anyone, including family, friends and others, scream or curse at you: never service: No Exam Const: Vital Signs, click to edit/add: Vital Signs - 24 hr 08/06/25 05:16 Temperature 98.1 F Pulse Rate [Left P ulse Oximeter] 75 Respiratory Rate 19 Blood Pressure [Ri ght Upper Arm] 146/63 H Pulse Oximetry 97 Oxygen Delivery Me thod Room Air Documenting provider has reviewed patient's vital signs: yes Common normals: no apparent distress General appearance: cooperative, comfortable and well kempt Other: Good historian, mildly anxious. No pallor. Good mentation. HENMT: Common normals: normocephalic, head/scalp atraumatic, moist oral mucous membranes and oropharynx normal Head and scalp: normocephalic and atraumatic Face and sinus: normal facial exam Other: Left narrow nostril appear normal. Right near in nostril appear normal. There are no signs of bleeding. I do have him gargle some fresh water and spit and I do see some blood clots coming posteriorly prior to the application of any medications. Eye: Common normals: conjunctivae normal General eye: normal appearance of both eyes Conjunctiva: conjunctiva(e) normal Neck & C-Spine: Common normals: full ROM and no lymphadenopathy General: normal visual inspection Resp: Common normals: normal respiratory effort Effort & inspection: able to speak in complete sentences Psych: Appearance: well kempt Attitude: engaged Activity/motor behavior: appropriate eye contact Attention/concentration: attention grossly intact Memory/cognition: memory grossly intact Skin: Narrative: No petechiae, open wounds or signs of spontaneous bleeding on the skin. Course Course ED Course: 80-year-old male with recent right posterior nose bleed presenting with recurrence of epistasis. Afrin and TXA sprayed into right nostril for initial management, clamp applied. Continued to take history from patient. He is under the impression that there is still something up in his nostril, like a tube. Review the records indicates that he thinks this might be the cause, not seen on initial exam. Bleeding did quickly cease with the Afrin and TXA. Will monitor for about 10 more minutes while chart is reviewed. Will call Dr. Mcgowan if the bleeding restarts 4 directions and management, would likely replace balloon. Reevaluation(s) Time of Reevaluation #1: 06:42 Reevaluation #1: Patient has been observed for about 30 minutes post treatment and still has no persistent signs of bleeding without clamp applied or any other treatments. He has garbled fresh water and spit several times for me so that I can prove that there is no blood running down the back of the throat. He is not feeling the sensation of persistent bleeding. We did discuss putting a balloon back in to prevent rebleeding prior to his appointment for tomorrow and he does not think this is necessary since we have gotten things under control, neither did I. We discussed the treatments that were done at the previous visit. I do not think that there is any type of 2 or other device still up in his nose. He does report more clearly to me now that the balloon fell out couple of days ago, this makes sense. He was under the impression that there would still be a balloon or other pieces of the device up in his nose. I let him know that the piece of plastic that fell out when deflated, really does not resemble a balloon and it does seem as though this was intact by the description. I do not see any evidence that there is still packing up in his nose on either side but let him know that I may not be able to see completely with the equipment in the ED here. It could have also washed out at some point. Several repeat reexaminations show no return of bleeding. I do think it is safe for him to discharge. He will keep his appointment as planned tomorrow. We spent some time reviewing management if the bleeding restarts. I have sent him with Afrin and a clamp. If the bleeding restarts and it is not profuse, he can try aggressively sprain the Afrin and applying a nasal clamp for 10 minutes. After those 10 minutes, removed the clamp, Josias Arjun Afrin and reapply for 2 minutes. If the bleeding then has ceased, it is okay to wait for the upcoming appointment. If at any point he has large blood clots, bleeding persistently down the back of the throat even with a clamp on, other signs of weakness, lightheadedness, etc. he should call 911 or come to the emergency room right away. Written instructions are provided. He verbalized understanding and agreement. Vital Signs Vital signs: Initial Vital Signs Temperature 98.1 F 08/06/25 05:16 Temperature Source Temporal Artery Scan 08/06/25 05:16 Pulse Rate 75 08/06/25 05:16 Pulse Rhythm Regular 08/06/25 05:16 Respiratory Rate 19 08/06/25 05:16 Blood Pressure 146/63 H 08/06/25 05:16 Blood Pressure Mean 90 08/06/25 05:16 Blood Pressure Position Sitting 08/06/25 05:16 Pulse Oximetry 97 08/06/25 05:16 Oxygen Delivery Method Room Air 08/06/25 05:16 Vital Signs Temperature 98.1 F 08/06/25 05:16 Pulse Rate 75 08/06/25 05:16 Respiratory Rate 19 08/06/25 05:16 Blood Pressure 146/63 H 08/06/25 05:16 Pulse Oximetry 97 08/06/25 05:16 Oxygen Delivery Method Room Air 08/06/25 05:16 Temperature 98.1 F 08/06/25 05:16 Pulse Rate 75 08/06/25 05:16 Respiratory Rate 19 08/06/25 05:16 Blood Pressure 146/63 H 08/06/25 05:16 Pulse Oximetry 97 08/06/25 05:16 Oxygen Delivery Method Room Air 08/06/25 05:16 Medications Administered Medications: Generic Name Dose Route Start Last Admin Trade Name Freq PRN Reason Stop Dose Admin Oxymetazoline HCl 1 spray 08/06/25 05:58 08/06/25 06:04 Oxymetazoline 0.05% Nasal [place] NOSTRIL-B 08/06/25 05:59 1 spray ONCE ONE Administration Tranexamic Acid 1,000 mg 08/06/25 05:58 08/06/25 06:04 Tranexamic Acid 100 Mg/Ml Inj TOPICAL 08/06/25 05:59 1,000 mg ONCE ONE Administration Discharge Plan Discharge Clinical Impression: Epistaxis Patient Disposition: Home w/ Parent or Adult Condition: Improved Instructions: Nosebleed (ED) Additional Instructions: I am thankful that your nose bleed stopped more easily this time. Holding your Eliquis for the past few days was likely a big reason for that. There are no pieces of the balloon remaining inside your nose and I do not see any of the gauze that was previously placed. It may be higher up than I can see but I suspect it likely washed out with 1 of the blood clots. Keep your appointment as planned for tomorrow with Dr. Mcgowan, he will be able to look up more closely and see if anything is still there and also offer you more long-term treatment for this area of bleeding. As we discussed, your bleeding is from the posterior portion of the nose, or the back of the nose. Bleeding from the front of the nose is much more common. If the bleeding restarts, use a big spray of the Afrin bottle that you were provided today and reapply that blew clamp for 10 minutes. If the bleeding is profuse and you are spitting blood clots out of the mouth, getting dizzy or having any severe symptoms, please call 911 for help instead of waiting. If it seems like this is helping, after leaving the clamp on for 10 minutes, removed the clamp, Josias [place] the Afrin, then reapply the clamp for 2 more minutes. After those 2 minutes, removed the clamp and see if the bleeding remains stopped. If the bleeding persists, please come to the emergency department. Together, we elected not to put in a new balloon, as we were able to get the bleeding under control. If the bleeding does restart in the meantime before your appointment, we would plan to put the balloon back in. Dr. Mcgowan will give additional recommendations on when to restart your Eliquis. It will likely be in a couple of days. It is okay to use Tylenol for discomfort. Try not to rub the nose for the next 30 minutes, to allow the clots to 4 more completely. Try not to aggressively blow your nose at all but you may gently blow your nose in a few hours if needed. Activity Level: Activity as Tolerated Discharge Diet: Regular Prescriptions: No Action atorvastatin 40 mg tablet 40 mg PO HS leflunomide 20 mg tablet 20 mg PO DAILY furosemide 20 mg tablet 20 mg PO DAILY finasteride 5 mg tablet 5 mg PO DAILY melatonin 3 mg capsule 6 mg PO HS PRN loratadine [Claritin] 10 mg tablet 10 mg PO DAILY PRN cephalexin 500 mg Capsule 500 mg PO TID Qty: 15 0RF flecainide 50 mg tablet 75 mg PO BID digoxin 125 mcg (0.125 mg) tablet 125 mcg PO DAILY Eliquis 5 mg tablet 5 mg PO BID Follow Up/Referrals: Gerardo Ferguson MD [Primary Care Provider, Family Practice] Stand Alone Forms: [email or web address] Info Instructions
[2025-08-06] MEDS: TRANEXAMIC ACID 100 MG/ML INJ 1000 MG TOPICAL (06:04)
[2025-08-06] MEDS: OXYMETAZOLINE 0.05% NASAL SPRAY 1 SPRAY NOSTRIL-B (06:04)
--- OUTSIDE RECORDS SUMMARY | 2025-08-06 06:06 | XMS_ITS ---
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 Name Role Phone ^\\, ^\\ Unavailable Unavailable Brook Cottrell Unavailable Unavailable Jameson Stallings Unavailable Unavailable Allergies and adverse reactions Code CodeSystem Substance Reaction Severity StartDate Concern Status Venoms Unknown 11/29/2019 active Hymenoptera Unknown 11/29/2019 active GRASS POLLEN Unknown 11/29/2019 active Adhesive Tape Unknown 11/29/2019 active Care Team Name Role Address Phone Organization Dates Jameson Stallings [address], [place], [address], [place] (Office): [facility] 11/29/2019 - 12/11/2019 ^\\ ^\\ [place] [facility] 11/29/2019 - 12/11/2019 Brook Cottrell [address] [place] [address] , [place], [address], [place] (Office): : (Pager): [facility] 11/29/2019 - 12/11/2019 Immunizations Immunization Status [...] completed tuberculin skin test; unspecified formulation lotNumber: [id number] expiry: 01/30/2022 Mfg: [employer] Given 0.1 ml Left Forearm intradermally Step [...] ACUTE ON CHRONIC RIGHT HEART FAILURE 11/29/[id number] active 2 BENIGN PROSTATIC HYPERPLASIA WITH LOWER URINARY TRACT SYMPTOMS 11/29/[address] active 3 BLINDNESS, ONE EYE, UNSPECIFIED EYE 11/29/[address] active 4 EDEMA, UNSPECIFIED 11/29/[address] active 5 ENCOUNTER FOR SURGICAL AFTERCARE FOLLOWING 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 11/29/[address] active 6 HYPERLIPIDEMIA, UNSPECIFIED 11/29/[address] active 7 INSOMNIA, UNSPECIFIED 11/29/[address] active 8 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 11/29/[address] active 9 MALE ERECTILE DYSFUNCTION, UNSPECIFIED 11/29/[address] active 10 MICROSCOPIC COLITIS, UNSPECIFIED 11/29/[address] active 11 OTHER INTERVERTEBRAL DISC DISPLACEMENT, LUMBAR REGION 11/29/[address] active 12 OTHER OBSTRUCTIVE AND REFLUX UROPATHY 11/29/[address] active 13 OTHER SPECIFIED POSTPROCEDURAL STATES 11/29/[address] active 14 PERSONAL HISTORY OF TRANSIENT ISCHEMIC ATTACK (TIA), AND CEREBRAL INFARCTION WITHOUT RESIDUAL DEFICITS 11/29/[address] active 15 RASH AND OTHER NONSPECIFIC SKIN ERUPTION 11/29/[address] active 16 RETENTION OF URINE, UNSPECIFIED 11/29/[address] active 17 RHEUMATIC TRICUSPID INSUFFICIENCY 11/29/[address] active 18 UNSPECIFIED ATRIAL FIBRILLATION 11/29/[address] active 19 UNSPECIFIED ATRIAL FLUTTER 11/29/[address] active 20 UNSPECIFIED HEARING LOSS, UNSPECIFIED EAR 11/29/[address] active Reason for Referral No Reasons for Referral Entered Social History Social History Observation Description Start Date End Date Code Code System Current Smoking Status Tobacco smoking consumption unknown 335553350 SNOMED CT Sex Assigned At Male 1945 91792-5 [facility] Gender Identity Sexual Orientation Vital Signs Code Code System Vitals Name Values and Units Timing Information 9279-1 [facility] Respiratory Rate Value=18.0 Units=/m in 12/11/2019 8462-4 [facility] Blood Pressure-Diastolic Value=65 Un its=mmHg 12/11/2019 8480-6 [facility] Blood Pressure-Systolic Inztk=510 Un its=mmHg 12/11/2019 8310-5 [facility] Body Temperature Value=98.1 Units= F 12/11/2019 8867-4 [facility] Heart rate Value=84.0 Units=/min 01/2020 92732-7 [facility] O2 % BldC Oximetry Value=98.0 Units= % 12/11/2019 86963-2 [facility] Pain Level Value=0.0 12/11/2019 85988-2 [facility] Weight Mvood=424.4 Units=Lbs 01/2020 8302-2 [facility] Height Value=67.0 Units=Inches 11/29/2019
== END 2025-08-06 06:46 | disposition home or self-care (01) ==
PROVIDERS: Emergency Provider Family Medicine; PCP Family Medicine
DX: R04.0 Epistaxis (principal)
CPT/HCPCS: 99283